=== PATIENT | male | born 1955 | race Caucasian/White ===

== ENCOUNTER 2016-08-27 08:45 | Observation (INO) | payer MEDICARE, MEDICAID ==
[2016-08-27] VITALS (7 sets, daily range): BP systolic 112–127; BP diastolic 55–72; PULSE 60–79; RESP 12–22; O2SAT 97–100
[~2016-08-27] VITALS: Ht 170.2 cm; Wt 97.1 kg
[~2016-08-27 08:45] MED LIST: ASPI-973 PO; ATOR80TA PO; CLOP75TA28 PO; DICY20TA10 PO; DOXA1TAB PO; FINA5TAB9 PO; FUR20 PO; GABA600T2 PO; INSU100C8 SUBQ; IRON150C19 PO; LOSA25TA21 PO; MECL-114 PO; MESA1.2T2 PO; METO25TA6 PO; PANT40TA3 PO; POTA10TA12 PO; RANI150C4 PO; TAMS0.4C29 PO; TRAZ-115 PO
--- NOTE | 2016-08-27 09:58 | ED.REPORT ---
HPI-General Illness Date of Service Aug 27, 2016 ED Provider: Albino Herron MD This is a 61 year old male with a history of history of ulcerative colitis, acute hypoxic, hypercapnic respiratory failure, obesity, DM, DVT, CAD, HTN, stroke, multiple TIA, CHF, and hyperlipidemia complaining of rash to left forearm that he noticed 3 days ago. Reports erythema and pain near the site. Associated symptoms include L upper extremity numbness that radiates to the fingers. Also reports L left lower extremity weakness and mild diffuse facial numbness which is slightly worse than baseline symptoms since previous stroke. Denies recent falls, injuries, fever, chills, cough, vomiting, nausea, change LOC, dizziness, or lightheadedness. Nursing Notes Stated Complaint: LEFT SIDE NUMB Chief Complaint: General Complaint Nursing Notes Reviewed: Yes Allergies: Coded Allergies: Macrolide Antibiotics (Verified Allergy, Severe, 09/07/15) azithromycin (Verified Allergy, Severe, 09/07/15) hydromorphone HCl (Verified Allergy, Severe, 09/07/15) lisinopril (Verified Allergy, Unknown, 09/07/15) methocarbamol (Verified Allergy, Unknown, 05/01/15) paroxetine (Verified Allergy, Unknown, 05/01/15) niacin (Verified Adverse Reaction, Mild, hot and itch, 04/15/15) Scheduled Aspirin (Aspirin) 81 Mg Tablet 81 MG PO DAILY Atorvastatin (Lipitor) 80 Mg Tablet 80 MG PO DAILY Clopidogrel (Clopidogrel) 75 Mg Tablet 75 MG PO DAILY Doxazosin (Cardura) 1 Mg Tablet 1 MG PO HS Finasteride (Finasteride) 5 Mg Tablet 5 MG PO DAILY Furosemide (Furosemide) 20 Mg Tab 20 MG PO DAILY Gabapentin (Gabapentin) 600 Mg Tablet 600 MG PO QID Insulin Aspart (NovoLOG U100 Insulin Vial) 100 U/Ml U 1 UNIT SUBQ per pump Iron Polysaccharide Complex (Ferric X-150) 150 Mg Iron Capsule 150 MG PO DAILY Losartan Potassium (Losartan Potassium) 25 Mg Tablet 25 MG PO DAILY Meclizine (Bonine) 25 Mg Tab.chew 25 MG PO TID Mesalamine (Lialda) 1.2 Gm Tablet.dr 1.2 GM PO BID Metoprolol Tartrate (Metoprolol Tartrate) 25 Mg Tablet 25 MG PO BID Pantoprazole DR (Pantoprazole DR) 40 Mg Tablet.dr 40 MG PO BID Potassium Chloride ER (Potassium Chloride ER) 10 Meq Tablet 10 MEQ PO DAILY TAKE WITH FOOD Ranitidine (Ranitidine) 150 Mg Capsule 150 MG PO BID Tamsulosin ER (Tamsulosin ER) 0.4 Mg Cap.er.24h 0.4 MG PO DAILY Scheduled PRN Dicyclomine (Dicyclomine) 20 Mg Tablet 20 MG PO QID PRN PRN For GI Cramps Trazodone (Trazodone) 50 Mg Tablet 25-50 MG PO HS PRN PRN Insomnia General Time Seen by MD: 09:48 Chief Complaint Other Hx Obtained From: Patient Arrived By: Walk-in Sudden in Onset?: Yes Onset Occurred: 3 days ago Symptom Duration: Since onset Severity: Current: Mild Pertinent Negative: Pt denies other symptoms Recent Healthcare: No recent doctor visit, No recent hospitalization Similar Sx Previous: No Past Medical History Patient History: Patient reports no known family medical history. Past Medical History Notes: PCP Dr. Márquez Pt in Admitted for fever diarrhea 04/05- with concern for recurrent C diff, but stool PCR panel negative Past Medical History h/o C. diff colitis ho Ulcerative colitis. history of acute hypoxic, hypercapnic respiratory failure requiring intubation and mechanical ventilation for eight days from September 23 through October 13, 2013. Obesity hypoventilation syndrome. History of pulmonary edema. History of GI bleeding associated with ulcerative colitis, gastritis, and esophagitis - pt w/a Dieulefoy lesion on endoscopy 09/23/[address] Ricketts (injected w/Epi, Hemoclip x2) Prior history of liver failure secondary to pravastatin, now resolved. Type 1 diabetes. History of DVT status post inferior vena cava filter by Dr. Edward on September 28, 2013 (patient no longer on Coumadin). Diastolic heart failure with last echocardiogram from September 2013 showing EF of 45%-55%. Status post pacemaker in 1994 for 3rd degree AV block. Insomnia. Depression. Hypertension. Hyperlipidemia. 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 Peripheral vascular disease. Obesity. ho Pneumonia Reports: Congestive heart failure, Coronary artery disease, Diabetes mellitus, GERD, Hyperlipidemia, Hypertension, Stroke, Transient ischemic attack Past Surgical History Right carotid stent Right lower extremity stent Inferior vena cava filter Reports: Carotid endarterectomy Reports: Pacemaker insertion Family History non-contributory Smoking History Former Smoker Social History Alcohol Use: Denies alcohol use Drug Use: Denies drug use Other Social History: Ambulatory Status Wheelchair Review of Systems Full Review of Systems Constitutional: Denies: Chills, Fever Respiratory: Denies: Shortness of breath GI: Denies: Abdominal pain, Nausea, Vomiting Musculoskeletal: Reports: Extremity pain Neurologic: Reports: Numbness, Weakness, Denies: Change LOC, Confusion, Headache Complete sys rev & neg: except as marked. Physical Exam Vital Signs Vital Signs Date Time Temp Pulse Resp B/P Pulse Ox O2 Delivery O2 Flow Rate FiO2 08/27/16 12:42 78 21 113/64 100 Room Air 08/27/16 10:02 71 19 116/55 98 Room Air 08/27/16 08:56 36.0 79 12 112/68 98 Room Air Initial VS: Reviewed Head / Eyes: Atraumatic, Normocephalic, PERRL ENT: Mucous membranes moist, Conjunctiva normal, No scleral icterus Neck: Supple, Non-tender, Full range of motion Respiratory: Breath sounds normal, Clear to auscultation, No respiratory distress Cardiovascular: Regular rate & rhythm, Heart sounds normal, Intact distal pulses Abdomen / GI: Soft, Non-tender, No guarding, No rebound, No distention Skin: Warm, Dry, No cyanosis Psychiatric: Mood/affect normal, Behavior normal, Normal thought content General/Constitutional: Awake, Alert Upper Extremities Upper Extremity / MS: No deformity, Neurologic intact, Vascular intact 1 cm subacute ulcer over L forearm without discharge or fluctuance. Neurologic: Oriented X3, Speech NL Decreased L sided facial sensation, 4/5 strength in L upper and lower extremities )( TPA Administration/Criteria Stroke Thrombolytic Therapy : TPA Administered Intravenously: No, not indicated NIH Stroke Scale Level of Consciousness: Alert and responsive (0) Ask Month & Age: Both questions right (0) Open/Close Eyes/Hand Religious Healer: Performs both tasks (0) Horizontal EO Movements: None (0) Visual Avelar: No visual loss (0) Facial Palsy: Normal symmetry (0) Right Arm Motor Drift (10s): No drift 10 sec (0) Left Arm Motor Drift (10s): Drift, not touch bed (1) (old) Right Leg Motor Drift (5s): No drift 5 sec (0) Left Leg Motor Drift (5s): No drift 5 sec (0) Limb Ataxia FNF/Heel-[place]: Ataxia in 2 limbs (2) (old) Sensation (Arms/Legs/Face): No sensory loss (0) Language Aphasia: No aphasia, normal (0) Dysarthria: No dysarthria, normal (0) Extinction/Inattention: No exctinct/inattent (0) NIHSS Score: 3 Time NIHSS Performed: 10:14 Date NIHSS Performed: Aug 27, 2016 Interpretation & Diagnostics BRAIN CT IMPRESSION: Mild mucosal thickening involving the ethmoid air cells. There is no acute or subacute stroke or hemorrhage identified and there is mild to moderate atherosclerotic change. Several small lucencies adjacent to the ventricles are again seen without change from prior comparison CT scans, indicating likelihood of several small lacunar infarctions in the past. Depending on the clinical status followup by MR scanning may be warranted. Dictated by: Jg Robert M.D. on 08/27/2016 at 11:21 Approved by: Jg Robert M.D. on 08/27/2016 at 11:21 Lab Results Interpretation Result Diagram: 08/27/16 1040 08/27/16 1040 Test 08/27/16 10:40 08/27/16 11:22 White Blood Count 7.1th/mm3 (3.8-10.1) Red Blood Count 4.77mil/mm3 (4.40-5.80) Hemoglobin 13.4g/dL (13.8-17.2) Hematocrit 40.9% (41.0-50.0) Mean Corpuscular Volume 85.7fL (81-100) Mean Corpuscular Hemoglobin 28.1pg (27.0-35.0) Mean Corpuscular Hemoglobin Concent 32.8% (32.0-37.0) Red Cell Distribution Width 13.5% (12.3-15.4) Platelet Count 279bil/L (150-400) Neutrophils (%) (Auto) 68.3% (40-74) Lymphocytes (%) (Auto) 16.6% (14-46) Monocytes (%) (Auto) 9.4% (4-12) Eosinophils (%) (Auto) 4.2% (0-5) Basophils (%) (Auto) 1.1% (0-3) Prothrombin Time 9.9sec (8.1-12.5) Prothromb Time International Ratio 0.93ratio Activated Partial Thromboplast Time 24.5sec (22.8-33.0) Sodium Level 138mEq/L (134-144) Potassium Level 4.4mEq/L (3.5-5.2) Chloride Level 100mEq/L (97-108) Carbon Dioxide Level 26mmol/L (18-29) Blood Urea Nitrogen 11mg/dL (6-24) Creatinine 0.76mg/dL (0.76-1.27) Estimat Glomerular Filtration Rate 112mL/min (>59) Glucose Level 268mg/dL (60-99) Calcium Level 9.2mg/dL (8.5-10.1) Total Bilirubin 1.3mg/dL (0.0-1.2) Aspartate Amino Transf (AST/SGOT) 13U/L (0-50) Alanine Aminotransferase (ALT/SGPT) 16U/L (0-44) Alkaline Phosphatase 102U/L (25-160) Troponin T < 0.010ug/L (0.0-0.011) Total Protein 7.1g/dL (6.4-8.4) Albumin 3.9g/dL (3.4-5.0) Urine Color Straw (YELLOW) Urine Appearance Hazy (CLEAR,HAZY) Urine pH 5.5 (5.0-8.0) Urine Specific [place] 1.015 (1.003-1.035) Urine Protein Negativemg/dL (NEG,TRACE) Urine Glucose (UA) 500mg/dL (NEGATIVE) Urine Ketones Negativemg/dL (NEGATIVE) Urine Occult Blood Negative (NEGATIVE) Urine Nitrite Negative (NEGATIVE) Urine Bilirubin Negative (NEGATIVE) Urine Urobilinogen Normalmg/dL (NORMAL) Urine Leukocyte Esterase Negative (NEGATIVE) Urine RBC 0-2/hpf (0-2) Urine WBC 0-5/hpf (0-5) Urine Epithelial Cells Occasional/hpf (NONE-MOD) Urine Crystals None seen (NONE SEEN) Urine Bacteria None/hpf (NONE-FEW) Urine Hyaline Casts None/lpf (NONE) Urine Granular Casts None seen (NONE SEEN) Urine Waxy Casts None seen (NONE SEEN) Urine Red Blood Cell Casts None seen (NONE SEEN) Urine White Blood Cell Casts None seen (NONE SEEN) Urine Mucus None seen (None Seen) Urine Trichomonas None seen (NONE SEEN) Urine Yeast None (NONE SEEN) Urinalysis Comment None Urine Culture Reflexed Not indicated Urine Opiates Screen Negative Urine Methadone Screen Negative Urine Barbiturates Screen Negative Urine Amphetamines Screen Negative Urine Benzodiazepines Screen Negative Urine Cocaine Metabolite Screen Negative Urine Cannabinoids Screen Negative ECG Interpretation ECG Interpretation: NSR at a rate of [address] changes Time: 10:44 Interpreted by: ED physician Re-Eval/Medical Decision Med Decision/Clinical Course 61-year-old male history of type I diabetes with insulin pump, history of CVA, DVT, ulcerative colitis presenting with worsening of his left-sided weakness and numbness 3 days. Patient with CVA years ago with residual deficits left-sided weakness left-sided numbness upper and lower extremity. Reports this worsens 3 days ago. Also complaining of left face numbness which is new. CT head no hemorrhage or acute pathology evidence of old lacunar infarcts. His NIH stroke scale is 3 with deficits as above which are subjectively worsened relative to old. Labs unremarkable. Discussed with neurologist Dr. Evans recommends admission for stroke workup. He cannot have an MRI due to his pacemaker. Recommended CT angiogram brain and neck and further stroke workup. Patient is on Plavix which is recommended continue and will give dose of aspirin. Time of Eval: 12:10 Re-Evaluation/Progress Note: Pt re-checked, discussed plan for admission. Pt understands and agrees with plan, all questions addressed. Consultation #1: Referral / Consult Name: Wolfgang Arango MD Consulted With: Neurology Call Returned at: 12:19 [place]: Agrees with eval, Agrees with plan Consultation #2: Referral / Consult Name: Lamont Ochoa Consulted With: Hospitalist Call Returned at: 12:43 [place]: Agrees with eval, Agrees with plan, Accepts admit Counseled Regarding: Diagnosis, Lab results, Need for follow-up, Need for admission Discharge & Departure Primary Impression: CVA (cerebral vascular accident) CVA mechanism: unspecified Qualified Code: I63.9 - Cerebral infarction, unspecified Disposition: ADMITTED TO HOSPITAL Discharge Condition All VS Reviewed: Yes Condition: Stable Referrals: Kareem Márquez MD (PCP) Scribe Attestation Portions of this note were transcribed by Nitesh Gallegos. IDr. Herron personally performed the history, physical exam and medical decision-making; I reviewed and confirmed the accuracy of the information in the transcribed note. Signed by: Nitesh Gallegos. 08/27/2015, 1030. Albino Herron MD Aug 27, 2016 09:58 NITESH GALLEGOS Aug 27, 2016 10:03
[2016-08-27 11:02] LABS: BASOPHILS % (AUTO) 1.1 % (0-3); EOSINOPHILS % (AUTO) 4.2 % (0-5); MONOCYTES % (AUTO) 9.4 % (4-12); Mean Corpuscular Hemoglobin 28.1 pg (27.0-35.0); Mean Corpuscular Volume 85.7 fL (81-100); NEUTROPHILS % (AUTO) 68.3 % (40-74); Platelet Count 279 bil/L (150-400)
--- NOTE | 2016-08-27 11:23 | DRSVH ---
PROCEDURE: CT BRAIN WITHOUT CONTRAST ([id number]) INDICATIONS: Stroke TECHNIQUE: Noncontrast 4.5 mm thick angled axial sections acquired from the foramen magnum to the vertex, with c oronal reformats. COMPARISON: [facility], CT, CT BRAIN WO CON, 03/27/2016, 14:20. FINDINGS: Image quality: Excellent. CSF spaces: Basal cisterns are patent. No extra-axial fluid collections. Ventricles are normal in size and shape. Brain: No midline shift. No intracranial masses or hemorrhage. Rich-white matter interface is norm al. Skull and face: Calvarium and visualized facial bones are intact, without suspicious lesions. Sinuses: Visualized sinuses and mastoids are clear except for mild mucosal thickening involving the ethmoid air cells. IMPRESSION: Mild mucosal thickening involving the ethmoid air cells. There is no acute or subacute s troke or hemorrhage identified and there is mild to moderate atherosclerotic change. Several small l ucencies adjacent to the ventricles are again seen without change from prior comparison CT scans, ind icating likelihood of several small lacunar infarctions in the past. Depending on the clinical status followup by MR scanning may be warranted. Dictated by: Jg Robert M.D. on 08/27/2016 at 11:21 Approved by: Jg Robert M.D. on 08/27/2016 at 11:21
[2016-08-27 11:25] LABS: INR 0.93 ratio
--- NOTE | 2016-08-27 11:43 | NUR ---
Evaluation completed. Please go to "Notes" then click on "Assessments and Notes" (bottom left corner of screen). Then select appropriate discipline tab on top of screen.
[2016-08-27 11:46] LABS: TROPONIN T < 0.010 ug/L (0.0-0.011)
[2016-08-27 12:10] LABS: APPEARANCE,URINE HAZY (CLEAR,HAZY); COLOR,URINE STRAW (YELLOW); OCCULT BLOOD,URINE NEGATIVE (NEGATIVE); PH,URINE 5.5 (5.0-8.0); UROBILINOGEN,URINE NORMAL (NORMAL)
[2016-08-27] MEDS ORDERED: Ondansetron 2 mg/mL 2 mL Inj IVPUSH PRN (13:00)
[2016-08-27] MEDS ORDERED: Alum-Mag Hydrox-Simeth 30 mL Suspension PO PRN ×2 (13:00→17:55)
[2016-08-27] MEDS ORDERED: POTA20TA16 PO (16:17)
[2016-08-27] MEDS ORDERED: INSLIS SQ (16:17)
[2016-08-27] MEDS ORDERED: DOXA2TAB PO (16:17)
[2016-08-27] MEDS ORDERED: OXYB15TA PO (16:17)
[2016-08-27] MEDS ORDERED: METO25TA99 PO (16:17)
--- NOTE | 2016-08-27 16:58 | NUR ---
[place] to [facility] Received report from Cintia ARCE at 1350 in ER. Pt A+Ox3, classroom coordinator equal, tongue midline, no facial droop. Pt reports still having some "numbness in left hand but getting better and I always have numbness in both feet." Denies pain. Scab to left forearm near elbow that pt states has been "unable to heal because the scab keeps catching on my jacket when I get dressed". Multiple scabs/abrasions noted also to bilateral lower legs with redness and dryness. Report called to Beena Gabriel RN on [facility], pt transferred [place] [facility] room 3011 from ER at 1646 in stable condition with all belongings via stretcher with ELECTRONICS RESEARCH ENGINEER, pt's electric scooter also went to floor with pt. Pt transferred out of ER at 1646.
--- NOTE | 2016-08-27 17:54 | NUR ---
ADMIT Admitted a 61/M into room 3011 at 1600 this afternoon following report from Aracely López RN. Pt A&Ox4, pleasant, denies any pain/discomfort. Pt able to transfer from stretcher to bed with SBA. He has his own personal scooter in room. R AC IV flushing well. Pt has mult skin issues - see patient flow sheet for details. Pt L hand slightly less than R in terms of drum operator, equal smile, tongue at midline. Pt able to hold both hands and legs out extended for 10+ seconds with no drift. TELE placed on pt, SR 77 per monitor and storage bin tender. Pt arrived with own insulin pump, req to utilize while in hospital. agreed, however per pharmacy unable to fill per policy. Pt agreed to switch to sliding scale while in hospital, cookpaged pt's decision. Current diet dysph mechanical, soft with extra gravy and thin liquids. Pt introduced to staff upon arrival and shown how to use call light and bed controls. Bed currently in lowest, locked position and call light in reach.
[2016-08-27] MEDS ORDERED: Polyethylene Glycol (PEG) 17 Gm Powder PO PRN (17:55)
[2016-08-27] MEDS ORDERED: Labetalol 5 mg/mL 4 mL Inj IVPUSH PRN (17:55)
[2016-08-27] MEDS ORDERED: Ondansetron 2 mg/mL 2 mL Inj IV PRN (17:55)
--- NOTE | 2016-08-27 18:20 | PCM.HPMED ---
Subjective Date of Service Aug 27, 2016 Primary Provider: Admitting Physician: Lamont Ochoa Primary Care Physician: Kareem Márquez MD Attending Physician: Lamont Ochoa Chief Complaint: left hand and arm numbness/tingling History of Present Illness: 59-year-old male with multiple medical issues as noted below and notable for DM , HTN, CVA and TIAs in the past says that he went to urgent care today earlier today because of a small ulceration that he has on his left arm (after a scratch by his cat) that seems to be slow in healing. At urgent care on ROS he told them that he has been having a ongoing numbness and tingling of his left arm and leg since Thursday (past 3 days now). He did not seek any medical attention earlier for his neurologic symptoms earlier because he says he has had these symptoms before which usually self resolve and he thought he might be having another TIA or paraesthesia due to his diabetes. At any rate, he was directed to come to the ED. In the ED Dr. Arango (neurologist) was apparently contact who recommended patient be admitted for further observation and consideration of CTA of his brain. No MRI given patient having a pacemaker in place. He tells me that his left leg numbness and tingling seem to have completely resolved while in the ED and he feels that the numbness of his left upper extremity is also improving although not completely resolved yet. He otherwise denies any other issues or complaints. He denies any focal weakness, acute change in his vision or speech. He does not have any dizziness. In the ED he received a dose of ASA 325mg x 1. Review of Systems: Allergies Coded Allergies: Macrolide Antibiotics (Verified Allergy, Severe, 08/27/16) azithromycin (Verified Allergy, Severe, 08/27/16) hydromorphone HCl (Verified Allergy, Severe, 08/27/16) lisinopril (Verified Allergy, Unknown, 08/27/16) methocarbamol (Verified Allergy, Unknown, 08/27/16) paroxetine (Verified Allergy, Unknown, 08/27/16) niacin (Verified Adverse Reaction, Mild, hot and itch, 08/27/16) Home Medications Tamsulosin ER 0.4 Mg Cap.Er.24h 0.4 Mg PO DAILY Clopidogrel 75 Mg Tablet 75 Mg PO DAILY Atorvastatin 80 Mg Tablet (Lipitor) 80 Mg PO DAILY Doxazosin Mesylate 2 Mg Tablet 1 Mg PO HS Losartan Potassium 25 Mg Tablet 25 Mg PO DAILY Metoprolol Succinate ER 25 Mg Tab.Er.24h 25 Mg PO BID Aspirin 81 Mg Tablet 81 Mg PO DAILY 30 Days Gabapentin 600 Mg Tablet 600 Mg PO QID Furosemide 20 Mg Tab 20 Mg PO DAILY 30 Days Potassium Chloride 20 Meq Tab.Er.Prt 20 Meq PO DAILY Mesalamine 1.2 Gm Tablet.Dr (Lialda) 1.2 Gm PO QID Pantoprazole DR 40 Mg Tablet.Dr 40 Mg PO BID Ranitidine 150 Mg Capsule 150 Mg PO BID Insulin Human Lispro 100 Unit/Ml Unit (HumaLOG U100 Insulin Vial) Unknown Dose SQ ACHS insulin dosing based on blood sugar, given via insulin pump Oxybutynin Chloride ER 15 Mg Tab.Er.24 15 Mg PO DAILY Finasteride 5 Mg Tablet 5 Mg PO DAILY 30 Days Exam Vital Signs & I/O Vital Sign- Last 8 Hours Date Time Temp Pulse Resp B/P Pulse Ox O2 Delivery O2 Flow Rate FiO2 08/27/16 17:07 36.7 77 22 120/66 97 Room Air 08/27/16 16:48 60 08/27/16 12:42 78 21 113/64 100 Room Air Lab & Micro Results Laboratory Tests Test 08/27/16 10:40 08/27/16 11:22 White Blood Count 7.1th/mm3 (3.8-10.1) Red Blood Count 4.77mil/mm3 (4.40-5.80) Hemoglobin 13.4g/dL (13.8-17.2) Hematocrit 40.9% (41.0-50.0) Mean Corpuscular Volume 85.7fL (81-100) Mean Corpuscular Hemoglobin 28.1pg (27.0-35.0) Mean Corpuscular Hemoglobin Concent 32.8% (32.0-37.0) Red Cell Distribution Width 13.5% (12.3-15.4) Platelet Count 279bil/L (150-400) Neutrophils (%) (Auto) 68.3% (40-74) Lymphocytes (%) (Auto) 16.6% (14-46) Monocytes (%) (Auto) 9.4% (4-12) Eosinophils (%) (Auto) 4.2% (0-5) Basophils (%) (Auto) 1.1% (0-3) Prothrombin Time 9.9sec (8.1-12.5) Prothromb Time International Ratio 0.93ratio Activated Partial Thromboplast Time 24.5sec (22.8-33.0) Sodium Level 138mEq/L (134-144) Potassium Level 4.4mEq/L (3.5-5.2) Chloride Level 100mEq/L (97-108) Carbon Dioxide Level 26mmol/L (18-29) Blood Urea Nitrogen 11mg/dL (6-24) Creatinine 0.76mg/dL (0.76-1.27) Estimat Glomerular Filtration Rate 112mL/min (>59) Glucose Level 268mg/dL (60-99) Calcium Level 9.2mg/dL (8.5-10.1) Total Bilirubin 1.3mg/dL (0.0-1.2) Aspartate Amino Transf (AST/SGOT) 13U/L (0-50) Alanine Aminotransferase (ALT/SGPT) 16U/L (0-44) Alkaline Phosphatase 102U/L (25-160) Troponin T < 0.010ug/L (0.0-0.011) Total Protein 7.1g/dL (6.4-8.4) Albumin 3.9g/dL (3.4-5.0) Urine Color Straw (YELLOW) Urine Appearance Hazy (CLEAR,HAZY) Urine pH 5.5 (5.0-8.0) Urine Specific [place] 1.015 (1.003-1.035) Urine Protein Negativemg/dL (NEG,TRACE) Urine Glucose (UA) 500mg/dL (NEGATIVE) Urine Ketones Negativemg/dL (NEGATIVE) Urine Occult Blood Negative (NEGATIVE) Urine Nitrite Negative (NEGATIVE) Urine Bilirubin Negative (NEGATIVE) Urine Urobilinogen Normalmg/dL (NORMAL) Urine Leukocyte Esterase Negative (NEGATIVE) Urine RBC 0-2/hpf (0-2) Urine WBC 0-5/hpf (0-5) Urine Epithelial Cells Occasional/hpf (NONE-MOD) Urine Crystals None seen (NONE SEEN) Urine Bacteria None/hpf (NONE-FEW) Urine Hyaline Casts None/lpf (NONE) Urine Granular Casts None seen (NONE SEEN) Urine Waxy Casts None seen (NONE SEEN) Urine Red Blood Cell Casts None seen (NONE SEEN) Urine White Blood Cell Casts None seen (NONE SEEN) Urine Mucus None seen (None Seen) Urine Trichomonas None seen (NONE SEEN) Urine Yeast None (NONE SEEN) Urinalysis Comment None Urine Culture Reflexed Not indicated Urine Opiates Screen Negative Urine Methadone Screen Negative Urine Barbiturates Screen Negative Urine Amphetamines Screen Negative Urine Benzodiazepines Screen Negative Urine Cocaine Metabolite Screen Negative Urine Cannabinoids Screen Negative Result Diagram: 08/27/16 1040 08/27/16 1040 Review of Systems: Constitutional: Negative, except as otherwise mentioned in the history above. Ophthalmologic: Negative, except as otherwise mentioned in the history above. Cardiovascular: Negative, except as otherwise mentioned in the history above. Respiratory: Negative, except as otherwise mentioned in the history above. Gastrointestinal: Negative, except as otherwise mentioned in the history above. Genitourinary: Negative, except as otherwise mentioned in the history above. Musculoskeletal: Negative, except as otherwise mentioned in the history above. Neurological: Negative, except as otherwise mentioned in the history above. Psychiatric: Negative, except as otherwise mentioned in the history above. Hematologic/Lymphatic: Negative, except as otherwise mentioned in the history above. Allergic/Immunologic: Negative, except as otherwise mentioned in the history above. PMH 1. post pacemaker placement 2. Distant history of C. diff colitis 3. Ulcerative colitis. 4. history of acute hypoxic, hypercapnic respiratory failure requiring intubation and mechanical ventilation for eight days from September 23 through October 13, 2013. 5. Obesity hypoventilation syndrome. 6. History of pulmonary edema. 7. History of GI bleeding associated with ulcerative colitis, gastritis, and esophagitis. 8. Prior history of liver failure secondary to pravastatin, now resolved. 9. Type 1 diabetes. 10. History of DVT status post inferior vena cava filter by Dr. Edward on September 28, 2013 (patient no longer on Coumadin). 11. Diastolic heart failure with last echocardiogram from September 2013 showing EF of 45%-55%. 12. Status post pacemaker in 1994 for 3rd degree AV block. 13. Insomnia. 14. Depression. 15. Hypertension. 16. Hyperlipidemia. 17. History of CVA with bilateral capsule ganglia lacunar infarction, status post TIA/CVA and intermittent left sided numbness and tingling 18. Status post right carotid stenting on December 19, 2010. 19. Peripheral vascular disease. 20. Used to smoke but quit several years ago after his NH. He denies any history of alcohol or drug abuse. Family History Unknown secondary to patient being adopted. Social History Hx Alcohol Use: No Hx Substance Use: No Hx Tobacco Use: No Smoking Status: Former Smoker Exam Vital Signs Vital Sign - Last Date Time Temp Pulse Resp B/P Pulse Ox O2 Delivery O2 Flow Rate FiO2 08/27/16 17:07 36.7 77 22 120/66 97 Room Air General: Alert, Oriented X3, Cooperative, No Acute Distress Head: Normal Eyes: PERRLA, EOMI, Scleral Anicteric Nose: Mucous Membr Moist/[place] Mouth: Mucous Membr Moist/[place] Neck: Supple Chest & Lungs: Chest Wall Normal, Clear to auscultation & percussion Cardiovascular: Regular Rate/Rhythm Pulses: NL carotid, radial, femoral, DP, PT Abdomen: Non-tender, Non-distended, Normoactive bowel tones, Soft Extremities: Other (trace bilat LE edema with chronic skin changes of LE bilat) Skin: Wounds/Lacerations (small wound (about 1cm) on left arm without significant surrounding erythema or discharge) Neurological: Grossly Neurologically Intact, Cranial Nerves 2-12 Intact, Normal Speech, Strength Normal 4/4 ext (bilat) Additional Information: no significant lymphadenopathy. Mood and affect appropriate Lab and Diagnostics Result Diagram: 08/27/16 1040 08/27/16 1040 X-Rays, CTs and MRIs Date of Service: 08/27/16 1018 PROCEDURE: CT BRAIN WITHOUT CONTRAST ([id number]) IMPRESSION: Mild mucosal thickening involving the ethmoid air cells. There is no acute or subacute stroke or hemorrhage identified and there is mild to moderate atherosclerotic change. Several small lucencies adjacent to the ventricles are again seen without change from prior comparison CT scans, indicating likelihood of several small lacunar infarctions in the past. Depending on the clinical status followup by MR scanning may be warranted. Dictated by: Jg Robert M.D. on 08/27/2016 at 11:21 Approved by: Jg Robert M.D. on 08/27/2016 at 11:21 Assessment & Plan 59-year-old male with multiple medical issuesand notable for DM, HTN, CVA and TIAs, CAD, post pacemaker in the past presents with report of about 3 days of LUE and LLE numbness and tingling with left LE symptoms already resolved prior to arriving to floor. # Acute and recurrent left sided numbness and paraesthesia. poa. ongoing but improving - unclear to me at this point if this is a new onset CVA/TIA vs acute exacerbation of prior symptoms vs diabetic neuropathy. - will observe on Tele - check CTA brain. unable to obtain MRI 2ndry to pacemaker - c/w home dose ASA + Plavix + Statin - f/u with neurology consult and recs - PT/OT - He has had multiple echocardiograms for workup of TIA/CVA (last one in March 2016) which I will not order at this time unless recommended by neurology consult. # small wound/ulceration on left arm from recent cat scratch. - does not seem infected - wound care and dressing # History of ulcerative colitis. stable - c/w home meds and supportive care # Type 1 diabetes. chronic. - c/w home dose Insulin - cover w/ ISS - f/u HgA1C # Diastolic heart failure, chronic. stable - c/w home dose Lasix # Hypertension. chronic. stable - c/w home BP meds # Hyperlipidemia. - c/w home dose statin as noted above # Peripheral vascular disease. - ASA, Plavix, Statin, and BP meds as noted Expected length of hospital stay is less than 2 midnights and likely home tomorrow if workup unrevealing and symptoms improve GI Prophylaxis: Proton Pump Inhibitor VTE Prophylaxis: Sub-Q Heparin (Unfractionated) Resuscitation Status: DNR/DNI:Do Not Resuscitate/Intubate (discussed and verified with the patient.) Time spent 60 min Lamont Ochoa Aug 27, 2016 18:20
[2016-08-27] MEDS: Pantoprazole 40 mg ER24 Tablet PO SCH (21:27)
[2016-08-27] MEDS: MeTOProlol XL 25 mg ER24 Tablet PO SCH (21:28)
[2016-08-27] MEDS: Insulin Human REGular 300 Unit/3 mL Inj SUBQ SCH (21:31)
--- NOTE | 2016-08-27 21:31 | NUR ---
Insulin pump refilled by friend, now self administering insulin.
[2016-08-28] VITALS (8 sets, daily range): BP systolic 110–132; BP diastolic 61–74; PULSE 64–75; RESP 20–21; O2SAT 95–99
[2016-08-28] MEDS: Heparin 5,000 Unit/mL Inj SUBQ SCH ×3 (00:06→17:07)
[2016-08-28] MEDS: Pantoprazole 40 mg ER24 Tablet PO SCH ×2 (06:02→20:44)
--- NOTE | 2016-08-28 08:49 | CONS ---
[address] [address] CONSULTATION REPORT PATIENT: GIAN GOETZ : 1955 MR#: [id number] ADMIT: 08/27/2016 JOB ID: [id number] DATE OF SERVICE: 08/27/2016 REQUESTING PROVIDER: Albino Herron MD. CHIEF COMPLAINT: Worsening left upper and lower extremity weakness and numbness. HISTORY OF PRESENT ILLNESS: The patient is a pleasant 61-year-old, right-handed man with multiple medical problems, including a longstanding history of diabetes mellitus type 1 and a history of a stroke in the past affecting the left side of his body. He reports that he had recovered greatly from the stroke up until recently when he noted sudden onset on Thursday of increasing weakness on the left side of his body, as well as increasing numbness. He reports a history of multiple transient ischemic attacks and felt that this was another event and did not seek emergency attention. He did have a CT of his head which demonstrated mild mucosal thickening involving the ethmoid air cells. There was no acute or subacute stroke or hemorrhage identified. There were mild to moderate atherosclerotic changes. There were several small lucencies adjacent to the ventricles that are seen without change from prior comparative CT scans indicating likely the several small lacunar infarctions in the past. He has the pacemaker and therefore, MRI is excluded as a possibility. He reports that he had noted some improvement in his symptoms over time since Thursday. PHYSICAL EXAMINATION: Temperature 36.6, pulse of 59, respiratory rate of 20, blood pressure 117/65, pulse oximetry 98%. There is left upper and left lower extremity weakness, 5-/5. IMPRESSION: Suspect that he did have another stroke. My recommendation is to do a CT angiogram of his head and neck. Renal function looks good. GFR is 112, BUN 11 and creatinine 0.76. He reports that he takes aspirin 81 mg and Plavix daily. I suspect that this stroke is related to his diabetes. I recommend that he continue to optimize control of his stroke risk factors, principally diabetes. If a hyperlipidemia panel has not been performed recently, I do recommended it. I recommend optimizing control of his stroke risk factors other than diabetes to include hyperlipidemia. Thank you again, Dr. Albino Herron, for allowing me to participate in the care of your patient. Please feel free to contact me with any questions or concerns.
[2016-08-28] MEDS: Insulin Human REGular 300 Unit/3 mL Inj SUBQ SCH ×4 (08:56→22:00)
[2016-08-28 09:05] LABS: BASOPHILS % (AUTO) 1.3 % (0-3); EOSINOPHILS % (AUTO) 6.5 % (0-5); MONOCYTES % (AUTO) 11.8 % (4-12); Mean Corpuscular Hemoglobin 27.7 pg (27.0-35.0); Mean Corpuscular Volume 86.2 fL (81-100); NEUTROPHILS % (AUTO) 51.5 % (40-74); Platelet Count 279 bil/L (150-400)
[2016-08-28] MEDS: MeTOProlol XL 25 mg ER24 Tablet PO SCH ×2 (09:05→20:44)
[2016-08-28] MEDS: Potassium Chloride 20 mEq SR Tablet PO SCH (09:06)
[2016-08-28] MEDS: Tolterodine ER 4 mg ER24 Capsule PO SCH (09:06)
[2016-08-28 09:36] LABS: Magnesium 1.9 mg/dL (1.6-2.6)
--- NOTE | 2016-08-28 10:59 | NUR ---
Social Work: Initial Assessment Data: Pt is a 61 y/o male admitted for CVA. Pt's PCP is Dr. Márquez. Pt's insurance is Medicare with [facility] Medicaid. Pt readmit score is 5. EMR reviewed, pt discussed in rounds. PT states that pt is currently at baseline and can d/c home from their perspective. MARINE STEWARD me with pt at bedside, role explained. Pt states that he lives alone in a single story home that is wheel chair accessible where he uses his electric scooter at baseline. Pt states he has [employer] that assist him with bathing and chores on from 12:45-3:30pm. Pt reports no history of HH, he spent time at [facility] previously, no LTC or VA benefits, and is not a caregiver for another. Pt does not drive and uses the bus system for transportation, this is also his plan for transport at d/c. No d/c planning needs anticipated at this time. MARINE STEWARD will continue to follow if needs arise. Assessment: Pt with some caregiving at baseline, electric scooter at baseline. Plan: Pt will d/c home via bus system when medically stable. No d/c planning needs anticipated at this time. MARINE STEWARD will continue to follow if needs arise. NAFISA Cyr Addendum: 08/28/16 at 1103 by LEONOR VELÁSQUEZ SS Amended: Links added.
--- NOTE | 2016-08-28 16:25 | NUR ---
Wound Care wound evaluation received, pleasant 61 yo male admitted for possible new neurological deficits. Consulted for left arm wound which is superficial and measuring 1.5 cm in diameter, appears uninfected. Recommended application of hydrogel and adhesive foam dressing. No follow up needed at this time.
--- NOTE | 2016-08-28 19:21 | DRSVH ---
PROCEDURE: CT ANGIO HEAD AND NECK (P) INDICATIONS: Stroke/TIA TECHNIQUE: Pre-contrast 4.5 mm thick sections acquired from the foramen magnum to the vertex. After the adminis tration of intravenous contrast, 1 mm thick sections acquired from the aortic arch through the [place]. Post-contrast 4.5 mm thick sections then re-acquired from the foramen magnum to the vert ex. 3-dimensional bvgbjbh-lshtkcjob-braqtyfjtn (MIP) and/or volume rendering reformats were acquired of the central intracranial vasculature and neck separately. For radiation dose reduction, the foll owing was used: automated exposure control, adjustment of mA and/or kV according to patient size. COMPARISON: [facility], CT, CT BRAIN WO CON, 08/27/2016, 11:07. FINDINGS: Image quality: Excellent. BRAIN: CSF spaces: Ventricles are normal in size and shape. Basal cisterns are patent. No extra-axial flu id collections. Brain: No midline shift. No intracranial bleeds or masses. Rich-white matter interface appears int act. Old, small, lacunar infarcts noted in the basal ganglia bilaterally. Skull and face: Calvarium and facial bones appear intact, without suspicious lesions. Orbits appear normal. Sinuses: Scattered mucosal thickening noted in the ethmoid air cells. The mastoids are clear. HEAD CT ANGIOGRAPHY: Anterior circulation: The right internal carotid artery is occluded. There is reconstitution of yaron w in the supraclinoid segment of the right internal carotid artery. Atherosclerotic calcifications n oted in the [place], cavernous and supraclinoid segments of the left internal carotid artery. Atheros clerotic disease causes high grade stenosis of the cavernous and supraclinoid segments of the left in ternal carotid artery. The flow within the paired anterior cerebral arteries is normal and symmetric . The flow within the middle cerebral arteries is normal and symmetric. The anterior communicating artery is seen. No aneurysms are seen. Posterior circulation: Visualized portions of the vertebral arteries demonstrate normal contrast opa cification and join to form a normal appearing basilar artery. Calcified atherosclerotic plaque noted in the V4 segments of the vertebral arteries bilaterally which does not cause measurable stenosis. Flow within the posterior cerebral arteries is normal and symmetric. No aneurysms are seen. Normal contrast enhancement of the dural sinuses noted. NECK CT ANGIOGRAPHY: Carotid system: The great vessels demonstrate a conventional anatomy as they arise from the aortic a rch. The origins of the common carotid arteries appear patent. The common carotid arteries demonstr ate normal caliber and courses. The right internal carotid artery is occluded immediately distal to t he origin the vessel. The left internal carotid artery is fully patent at its origin. Posterior circulation: The origins of the vertebral arteries both appear widely patent. The more rodriguez perior extracranial portions of both vertebral arteries also demonstrate normal courses and calibers. They join to form a normal appearing basilar artery. Soft tissues: Visualized neck soft tissues demonstrate no suspicious abnormalities. Left chest wall cardiac pacer is noted. Bones: No suspicious bony lesions. Visualized cervical spine appears normally aligned. IMPRESSION: 1. Right internal carotid artery is a occluded just distal to its origin. Endovascular device is no marlene in the [place] segment of the right internal carotid remains in place for prior embolization. Ple ase correlate with clinical history. 2. High grade atherosclerotic stenosis involving the cavernous and supraclinoid segments of the left internal carotid artery. 3. No hemodynamically significant stenosis involving the posterior circulation. Dictated by: Jeannine Kohler MD, PhD on 08/28/2016 at 19:19 Approved by: Jeannine Kohler MD, PhD on 08/28/2016 at 19:19
--- NOTE | 2016-08-28 21:01 | PCM.PNMED ---
Subjective Date of Service Aug 28, 2016 Subjective Patient feels that his neurological status is back to baseline. He no longer has weakness or paresthesias of the left upper extremity. Exam Vital Signs Vital Sign - Last Date Time Temp Pulse Resp B/P Pulse Ox O2 Delivery O2 Flow Rate FiO2 08/28/16 16:46 36.9 75 21 132/74 95 Room Air Intake and Output 08/27/16 08/27/16 08/28/16 Cumulative From/Thru 15:00 23:00 07:00 08/27/16 08:56 - 08/27/16 21:32 Intake Total 237 ml 237 ml Output Total 425 ml 275 ml 700 ml Balance -425 ml -38 ml -463 ml Intake Oral 237 ml 237 ml Output Urine Total 425 ml 275 ml 700 ml Exam General: Patient is in no apparent distress. He has been getting in and out his scooter. HEENT: Head is atraumatic normocephalic. Eyes: Pupils are equally round and reactive to light and accommodation. Extraocular muscles are intact. Sclera are white anicteric. Subconjunctival mucosa is pink. Ears and nose are unremarkable. Oropharynx: There is no mucosal lesions, there is no thrush, there is no pharyngitis. Neck: Is supple, there are no nodes, or masses, or tenderness. Chest: Is clear to auscultation and percussion. There are no rales, rhonchi, wheezes or rubs. Heart: Rate, rhythm, is regular. There is no murmur, rub or gallop. Abdomen: Good bowel sounds are present. Abdomen is soft, nontender, no organomegaly or masses were appreciated. Extremities: Are symmetrical and well perfused. There is no edema, there is no cellulitis, no rash. Neurologic: There are no gross focal neurological deficits. Patient was able to do the finger to nose test however with poor precision. He was able to perform the qfqo-si-yloy test without difficulty. He has very poor balance all standing however. Cranial nerves II through XII are intact. There are no other sensory or motor deficits. Patient does have extremely poor peripheral vision. He states this is from numerous laser surgeries on his retina. Psychiatric: Patients mood is calm and shows no sign of agitation. Genital: Deferred Rectal: Deferred Lab and Diagnostics Result Diagram: 08/28/1652 08/28/1652 X-Rays, CTs and MRIs Date of Service: 08/27/16 1018 PROCEDURE: CT BRAIN WITHOUT CONTRAST ([id number]) IMPRESSION: Mild mucosal thickening involving the ethmoid air cells. There is no acute or subacute stroke or hemorrhage identified and there is mild to moderate atherosclerotic change. Several small lucencies adjacent to the ventricles are again seen without change from prior comparison CT scans, indicating likelihood of several small lacunar infarctions in the past. Depending on the clinical status followup by MR scanning may be warranted. Dictated by: Jg Robert M.D. on 08/27/2016 at 11:21 Approved by: Jg Robert M.D. on 08/27/2016 at 11:21 PROCEDURE: CT ANGIO HEAD AND NECK (P) INDICATIONS: Stroke/TIA TECHNIQUE: Pre-contrast 4.5 mm thick sections acquired from the foramen magnum to the vertex. After the administration of intravenous contrast, 1 mm thick sections acquired from the aortic arch through the [place] of [place]. Post-contrast 4.5 mm thick sections then re-acquired from the foramen magnum to the vertex. 3- dimensional gtauvqp-lmrivafco-obounaavdf (MIP) and/or volume rendering reformats were acquired of the central intracranial vasculature and neck separately. For radiation dose reduction, the following was used: automated exposure control, adjustment of mA and/or kV according to patient size. COMPARISON: [facility], CT, CT BRAIN WO CON, 08/27/2016, 11:07. FINDINGS: Image quality: Excellent. BRAIN: CSF spaces: Ventricles are normal in size and shape. Basal cisterns are patent. No extra-axial fluid collections. Brain: No midline shift. No intracranial bleeds or masses. Rich-white matter interface appears intact. Old, small, lacunar infarcts noted in the basal ganglia bilaterally. Skull and face: Calvarium and facial bones appear intact, without suspicious lesions. Orbits appear normal. Sinuses: Scattered mucosal thickening noted in the ethmoid air cells. The mastoids are clear. HEAD CT ANGIOGRAPHY: Anterior circulation: The right internal carotid artery is occluded. There is reconstitution of flow in the supraclinoid segment of the right internal carotid artery. Atherosclerotic calcifications noted in the [place], cavernous and supraclinoid segments of the left internal carotid artery. Atherosclerotic disease causes high grade stenosis of the cavernous and supraclinoid segments of the left internal carotid artery. The flow within the paired anterior cerebral arteries is normal and symmetric. The flow within the middle cerebral arteries is normal and symmetric. The anterior communicating artery is seen. No aneurysms are seen. Posterior circulation: Visualized portions of the vertebral arteries demonstrate normal contrast opacification and join to form a normal appearing basilar artery. Calcified atherosclerotic plaque noted in the V4 segments of the vertebral arteries bilaterally which does not cause measurable stenosis. Flow within the posterior cerebral arteries is normal and symmetric. No aneurysms are seen. Normal contrast enhancement of the dural sinuses noted. NECK CT ANGIOGRAPHY: Carotid system: The great vessels demonstrate a conventional anatomy as they arise from the aortic arch. The origins of the common carotid arteries appear patent. The common carotid arteries demonstrate normal caliber and courses. The right internal carotid artery is occluded immediately distal to the origin the vessel. The left internal carotid artery is fully patent at its origin. Posterior circulation: The origins of the vertebral arteries both appear widely patent. The more superior extracranial portions of both vertebral arteries also demonstrate normal courses and calibers. They join to form a normal appearing basilar artery. Soft tissues: Visualized neck soft tissues demonstrate no suspicious abnormalities. Left chest wall cardiac pacer is noted. Bones: No suspicious bony lesions. Visualized cervical spine appears normally aligned. IMPRESSION: 1. Right internal carotid artery is a occluded just distal to its origin. Endovascular device is noted in the [place] segment of the right internal carotid remains in place for prior embolization. Please correlate with clinical history. 2. High grade atherosclerotic stenosis involving the cavernous and supraclinoid segments of the left internal carotid artery. 3. No hemodynamically significant stenosis involving the posterior circulation. Dictated by: Jeannine Kohler MD, PhD on 08/28/2016 at 19:19 Approved by: Jeannine Kohler MD, PhD on 08/28/2016 at 19:19 Cardiac Echo Impressions Echocardiogram Report Name: GIAN GOETZ WStudy Date : 03/28/2016 Height: 67 in Hospital Exam Location: [facility] Weight: 214 lb Gender: Male BSA: 2.1 m2 : 1955 Age: 60 yrs BP: 110/70 mmHg Reason For Study: CVA Ordering Physician: HOSPITALIST SVHPerformed By: Yogi Plummer Referring Physician: MERLINE LOPEZ Interpretation Summary The study quality was technically difficult. The ejection fraction is estimated to be 50-55%. There is no Doppler evidence for an atrial septal defect. There is mild mitral regurgitation. Assessment & Plan 59-year-old male with multiple medical issues and notable for DM, HTN, CVA and TIAs, CAD, post pacemaker in the past presents with report of about 3 days of LUE and LLE numbness and tingling with left LE symptoms already resolved prior to arriving to floor. # Acute and recurrent left sided numbness and paraesthesia. poa. ongoing but improving - Unclear to me at this point if this is a new onset CVA/TIA vs acute exacerbation of prior symptoms vs diabetic neuropathy. - Will continue to observe on Tele - Unable to obtain MRI 2ndry to pacemaker -CT angiogram of the head and neck shows total occlusion of the right internal carotid at its origin. We will discuss the significance of this with Dr. Arango. - Continue with home dose ASA + Plavix + Statin - And will discuss with neurology data communications software consultant Dr. Arango. - PT/OT - He has had multiple echocardiograms for workup of TIA/CVA (last one in March 2016) which I will not order at this time unless recommended by neurology consult. # Small wound/ulceration on left arm from recent cat scratch. - The scratch does not seem infected - And 2 new wound care and dressing # History of ulcerative colitis. stable -Continue with home meds and supportive care # Type 1 diabetes. chronic. And with evidence of noncompliance due to markedly elevated hemoglobin A1c of 12.1 -Continue with home dose Insulin -Continue to cover w/ ISS - HgA1C was 12.1 -We will offer patient diabetic counseling. # Diastolic heart failure, chronic. stable - c/w home dose Lasix # Hypertension. chronic. stable - c/w home BP meds # Hyperlipidemia. - c/w home dose statin as noted above # Peripheral vascular disease. - ASA, Plavix, Statin, and BP meds as noted Disposition: Dependence on treatment plan recommended by Dr. Arango. GI Prophylaxis: Proton Pump Inhibitor VTE Prophylaxis: Sub-Q Heparin (Unfractionated) VTE Mechanical Devices: Intermittant Pneumatic CD Resuscitation Status: DNR/DNI:Do Not Resuscitate/Intubate (discussed and verified with the patient.) Oz Leung MD Aug 28, 2016 21:01
--- NOTE | 2016-08-28 22:08 | NUR ---
Case Management: Attempted to provide Observation Brochure but patient sleeping soundly. Try again tomorrow am. Kamini Valenzuela RN
[2016-08-29] MEDS: Heparin 5,000 Unit/mL Inj SUBQ SCH ×2 (00:30→08:27)
[2016-08-29 02:10] VITALS: BP 113/62; PULSE 71; RESP 20; O2SAT 96
[2016-08-29 05:26] VITALS: PULSE 67
[2016-08-29 05:47] VITALS: BP 126/74; PULSE 76; RESP 20; O2SAT 96
--- NOTE | 2016-08-29 05:52 | NUR ---
Administrative Dietitian Pt asleep on and off during night. During the night (0300) pt got on his scooter and went for a drive/stroll around the unit. Pleasant and talkative, said he couldn't sleep. Pt reported no pain at beginning of shift but around 0400 reported cramping toe pain. IV morphine administered and pain relieved as pt was back sleeping. Pt planning on being discharged this morning pending review of CT scan.
[2016-08-29] MEDS: Pantoprazole 40 mg ER24 Tablet PO SCH (06:32)
[2016-08-29 06:49] LABS: BASOPHILS % (AUTO) 0.9 % (0-3); EOSINOPHILS % (AUTO) 6.7 % (0-5); MONOCYTES % (AUTO) 9.5 % (4-12); Mean Corpuscular Hemoglobin 27.5 pg (27.0-35.0); Mean Corpuscular Volume 86.7 fL (81-100); NEUTROPHILS % (AUTO) 54.9 % (40-74); Platelet Count 264 bil/L (150-400)
[2016-08-29] MEDS: Insulin Human REGular 300 Unit/3 mL Inj SUBQ SCH (07:30)
[2016-08-29 08:00] VITALS: PULSE 77
[2016-08-29 08:15] VITALS: PULSE 73; O2SAT 98
[2016-08-29] MEDS: Tolterodine ER 4 mg ER24 Capsule PO SCH (08:27)
[2016-08-29] MEDS: Potassium Chloride 20 mEq SR Tablet PO SCH (08:27)
[2016-08-29] MEDS: MeTOProlol XL 25 mg ER24 Tablet PO SCH (08:27)
[2016-08-29 08:30] VITALS: BP 121/66; PULSE 75; RESP 20; O2SAT 94
--- NOTE | 2016-08-29 08:51 | PCM.DIMED ---
Discharge Instructions Date of Service Aug 29, 2016 Dates of Hospitalization Aug 27, 2016 at 16:34 Discharge Diagnosis Discharge Diagnosis Transient Ischemic Attack Diet Heart Healthy, Diabetic Activity No restrictions (May resume usual activity gradually as tolerated) Call your provider Fever or Chills, Shortness of breath, Bleeding, Chest pain, Vomitting, Excessive diarrhea, Weakness (unilateral), Other Patient Instructions Follow-up Provider: Kareem Márquez MD Follow-up with PCP in: 1 week Follow-up in: 1 week ([facility]) Oz Leung MD Aug 29, 2016 08:51
--- NOTE | 2016-08-29 09:02 | NUR ---
Social Work: Discharge Data: Pt is on day 2 of hospitalization. EMR reviewed, d/c orders are in. No further d/c needs at this time. PIT SUPERVISOR will continue to follow if needs arise. Assessment: Pt who is independent at baseline. Plan: Pt will d/c home via bus system with [facility] [employer] [facility] to continue coming into his home for assistance twice a week. No further d/c needs at this time. PIT SUPERVISOR will continue to follow if needs arise. NAFISA Cyr
--- NOTE | 2016-08-29 09:58 | NUR ---
discharge paperwork review, no questions at this time. pt has a power-scooter and chooses to drive himself out of the hospital. pt denies any pain/distress at this time. pt has all his belongings in a white bag and backpack.
[2016-08-29] MEDS ORDERED: MESALAMINE 1.2 GM PO SCH (16:30)
--- NOTE | 2016-08-30 00:25 | PCM.DC.MED ---
Discharge Summary Date of Service Aug 29, 2016 Dates of Hospitalization Date of Hospital Admission Aug 27, 2016 at 16:34 Date of Discharge: Aug 29, 2016 Providers: Admitting Physician: Lamont Schuster Primary Care Physician: Kareem Márquez MD Attending Physician: Lamont Schuster Diagnosis at Time of Discharge Diagnosis at Time of Discharge Transient Ischemic Attack Procedures XRay, CTs & MRIs Date of Service: 08/27/16 1018 PROCEDURE: CT BRAIN WITHOUT CONTRAST ([id number]) IMPRESSION: Mild mucosal thickening involving the ethmoid air cells. There is no acute or subacute stroke or hemorrhage identified and there is mild to moderate atherosclerotic change. Several small lucencies adjacent to the ventricles are again seen without change from prior comparison CT scans, indicating likelihood of several small lacunar infarctions in the past. Depending on the clinical status followup by MR scanning may be warranted. Dictated by: Jg Robert M.D. on 08/27/2016 at 11:21 Approved by: Jg Robert M.D. on 08/27/2016 at 11:21 PROCEDURE: CT ANGIO HEAD AND NECK (P) INDICATIONS: Stroke/TIA TECHNIQUE: Pre-contrast 4.5 mm thick sections acquired from the foramen magnum to the vertex. After the administration of intravenous contrast, 1 mm thick sections acquired from the aortic arch through the [place] of [place]. Post-contrast 4.5 mm thick sections then re-acquired from the foramen magnum to the vertex. 3- dimensional zmsirvy-mhwtlynjp-ipexzdbxab (MIP) and/or volume rendering reformats were acquired of the central intracranial vasculature and neck separately. For radiation dose reduction, the following was used: automated exposure control, adjustment of mA and/or kV according to patient size. COMPARISON: [facility], CT, CT BRAIN WO CON, 08/27/2016, 11:07. FINDINGS: Image quality: Excellent. BRAIN: CSF spaces: Ventricles are normal in size and shape. Basal cisterns are patent. No extra-axial fluid collections. Brain: No midline shift. No intracranial bleeds or masses. Rich-white matter interface appears intact. Old, small, lacunar infarcts noted in the basal ganglia bilaterally. Skull and face: Calvarium and facial bones appear intact, without suspicious lesions. Orbits appear normal. Sinuses: Scattered mucosal thickening noted in the ethmoid air cells. The mastoids are clear. HEAD CT ANGIOGRAPHY: Anterior circulation: The right internal carotid artery is occluded. There is reconstitution of flow in the supraclinoid segment of the right internal carotid artery. Atherosclerotic calcifications noted in the [place], cavernous and supraclinoid segments of the left internal carotid artery. Atherosclerotic disease causes high grade stenosis of the cavernous and supraclinoid segments of the left internal carotid artery. The flow within the paired anterior cerebral arteries is normal and symmetric. The flow within the middle cerebral arteries is normal and symmetric. The anterior communicating artery is seen. No aneurysms are seen. Posterior circulation: Visualized portions of the vertebral arteries demonstrate normal contrast opacification and join to form a normal appearing basilar artery. Calcified atherosclerotic plaque noted in the V4 segments of the vertebral arteries bilaterally which does not cause measurable stenosis. Flow within the posterior cerebral arteries is normal and symmetric. No aneurysms are seen. Normal contrast enhancement of the dural sinuses noted. NECK CT ANGIOGRAPHY: Carotid system: The great vessels demonstrate a conventional anatomy as they arise from the aortic arch. The origins of the common carotid arteries appear patent. The common carotid arteries demonstrate normal caliber and courses. The right internal carotid artery is occluded immediately distal to the origin the vessel. The left internal carotid artery is fully patent at its origin. Posterior circulation: The origins of the vertebral arteries both appear widely patent. The more superior extracranial portions of both vertebral arteries also demonstrate normal courses and calibers. They join to form a normal appearing basilar artery. Soft tissues: Visualized neck soft tissues demonstrate no suspicious abnormalities. Left chest wall cardiac pacer is noted. Bones: No suspicious bony lesions. Visualized cervical spine appears normally aligned. IMPRESSION: 1. Right internal carotid artery is a occluded just distal to its origin. Endovascular device is noted in the [place] segment of the right internal carotid remains in place for prior embolization. Please correlate with clinical history. 2. High grade atherosclerotic stenosis involving the cavernous and supraclinoid segments of the left internal carotid artery. 3. No hemodynamically significant stenosis involving the posterior circulation. Dictated by: Jeannine Kohler MD, PhD on 08/28/2016 at 19:19 Approved by: Jeannine Kohler MD, PhD on 08/28/2016 at 19:19 Cardiac Echo Impression Echocardiogram Report Name: GIAN GOETZ WStudy Date : 03/28/2016 Height: 67 in Hospital Exam Location: [facility] Weight: 214 lb Gender: Male BSA: 2.1 m2 : 1955 Age: 60 yrs BP: 110/70 mmHg Reason For Study: CVA Ordering Physician: HOSPITALIST SVHPerformed By: Yogi Plummer Referring Physician: MERLINE LOPEZ Interpretation Summary The study quality was technically difficult. The ejection fraction is estimated to be 50-55%. There is no Doppler evidence for an atrial septal defect. There is mild mitral regurgitation. Brief History 59-year-old male with multiple medical issues as noted below and notable for DM , HTN, CVA and TIAs in the past says that he went to urgent care today earlier today because of a small ulceration that he has on his left arm (after a scratch by his cat) that seems to be slow in healing. At urgent care on he told them that he has been having a ongoing numbness and tingling of his left arm and leg since Thursday (past 3 days now). He did not seek any medical attention earlier for his neurologic symptoms earlier because he says he has had these symptoms before which usually self resolve and he thought he might be having another TIA or paraesthesia due to his diabetes. At any rate, he was directed to come to the ED. In the ED Dr. Tineo (neurologist) was apparently contact who recommended patient be admitted for further observation and consideration of CTA of his brain. No MRI given patient having a pacemaker in place. He tells me that his left leg numbness and tingling seem to have completely resolved while in the ED and he feels that the numbness of his left upper extremity is also improving although not completely resolved yet. He otherwise denies any other issues or complaints. He denies any focal weakness, acute change in his vision or speech. He does not have any dizziness. In the ED he received a dose of ASA 325mg x 1. Patient was admitted to the hospital service for further evaluation and treatment. Hospital Course 59-year-old male with multiple medical issues and notable for DM, HTN, CVA and TIAs, CAD, post pacemaker in the past presents with report of about 3 days of LUE and LLE numbness and tingling with left LE symptoms already resolved prior to arriving to floor. # Acute and recurrent left sided numbness and paraesthesia. poa. ongoing but improving - Unclear to me at this point if this is a new onset CVA/TIA vs acute exacerbation of prior symptoms vs diabetic neuropathy. - Will continue to observe on Tele - Unable to obtain MRI 2ndry to pacemaker -CT angiogram of the head and neck shows total occlusion of the right internal carotid at its origin. I have discussed the significance of this with Dr. Tineo. And his opinion is that since the internal carotid is completely occluded there is little that can be done surgically at this time. However he does recommend that the patient follow-up with the cerebrovascular [place] at [facility] in [place]. Patient was informed of Dr. tineo's recommendations and agrees to follow through. - Continue with home dose ASA + Plavix + Statin - He has had multiple echocardiograms for workup of TIA/CVA (last one in March 2016) which I will not order at this time unless recommended by neurology consult. # Small wound/ulceration on left arm from recent cat scratch. - The scratch does not seem infected - And 2 new wound care and dressing # History of ulcerative colitis. stable -Continue with home meds and supportive care # Type 1 diabetes. chronic. And with evidence of noncompliance due to markedly elevated hemoglobin A1c of 12.1 -Continue with home dose Insulin -Continue to cover w/ ISS - HgA1C was 12.1 -We will offer patient diabetic counseling. # Diastolic heart failure, chronic. stable - c/w home dose Lasix # Hypertension. chronic. stable - c/w home BP meds # Hyperlipidemia. - c/w home dose statin as noted above # Peripheral vascular disease. - ASA, Plavix, Statin, and BP meds as noted Disposition: Patient to be discharged home today. Exam Vital Signs (Last) Date Time Temp Pulse Resp B/P Pulse Ox O2 Delivery O2 Flow Rate FiO2 08/29/16 08:30 36.6 75 20 121/66 94 Room Air Exam General: Patient is in no apparent distress. He has been getting in and out his scooter. HEENT: Head is atraumatic normocephalic. Eyes: Pupils are equally round and reactive to light and accommodation. Extraocular muscles are intact. Sclera are white anicteric. Subconjunctival mucosa is pink. Ears and nose are unremarkable. Oropharynx: There is no mucosal lesions, there is no thrush, there is no pharyngitis. Neck: Is supple, there are no nodes, or masses, or tenderness. Chest: Is clear to auscultation and percussion. There are no rales, rhonchi, wheezes or rubs. Heart: Rate, rhythm, is regular. There is no murmur, rub or gallop. Abdomen: Good bowel sounds are present. Abdomen is soft, nontender, no organomegaly or masses were appreciated. Extremities: Are symmetrical and well perfused. There is no edema, there is no cellulitis, no rash. Neurologic: There are no gross focal neurological deficits. Patient was able to do the finger to nose test however with poor precision. He was able to perform the hqzc-[id number] test without difficulty. He has very poor balance all standing however. Cranial nerves II through XII are intact. There are no other sensory or motor deficits. Patient does have extremely poor peripheral vision. He states this is from numerous laser surgeries on his retina. Psychiatric: Patients mood is calm and shows no sign of agitation. Genital: Deferred Rectal: Deferred Test 08/27/16 10:40 08/27/16 11:22 08/29/16 06:10 Prothrombin Time 9.9sec (8.1-12.5) Prothromb Time International Ratio 0.93ratio Activated Partial Thromboplast Time 24.5sec (22.8-33.0) Hemoglobin A1c 12.1% (4.8-5.6) Troponin T < 0.010ug/L (0.0-0.011) Urine Color Straw (YELLOW) Urine Appearance Hazy (CLEAR,HAZY) Urine pH 5.5 (5.0-8.0) Urine Specific [place] 1.015 (1.003-1.035) Urine Protein Negativemg/dL (NEG,TRACE) Urine Glucose (UA) 500mg/dL (NEGATIVE) Urine Ketones Negativemg/dL (NEGATIVE) Urine Occult Blood Negative (NEGATIVE) Urine Nitrite Negative (NEGATIVE) Urine Bilirubin Negative (NEGATIVE) Urine Urobilinogen Normalmg/dL (NORMAL) Urine Leukocyte Esterase Negative (NEGATIVE) Urine RBC 0-2/hpf (0-2) Urine WBC 0-5/hpf (0-5) Urine Epithelial Cells Occasional/hpf (NONE-MOD) Urine Crystals None seen (NONE SEEN) Urine Bacteria None/hpf (NONE-FEW) Urine Hyaline Casts None/lpf (NONE) Urine Granular Casts None seen (NONE SEEN) Urine Waxy Casts None seen (NONE SEEN) Urine Red Blood Cell Casts None seen (NONE SEEN) Urine White Blood Cell Casts None seen (NONE SEEN) Urine Mucus None seen (None Seen) Urine Trichomonas None seen (NONE SEEN) Urine Yeast None (NONE SEEN) Urinalysis Comment None Urine Culture Reflexed Not indicated Urine Opiates Screen Negative Urine Methadone Screen Negative Urine Barbiturates Screen Negative Urine Amphetamines Screen Negative Urine Benzodiazepines Screen Negative Urine Cocaine Metabolite Screen Negative Urine Cannabinoids Screen Negative White Blood Count 5.8th/mm3 (3.8-10.1) Red Blood Count 4.29mil/mm3 (4.40-5.80) Hemoglobin 11.8g/dL (13.8-17.2) Hematocrit 37.2% (41.0-50.0) Mean Corpuscular Volume 86.7fL (81-100) Mean Corpuscular Hemoglobin 27.5pg (27.0-35.0) Mean Corpuscular Hemoglobin Concent 31.7% (32.0-37.0) Red Cell Distribution Width 13.3% (12.3-15.4) Platelet Count 264bil/L (150-400) Neutrophils (%) (Auto) 54.9% (40-74) Lymphocytes (%) (Auto) 27.5% (14-46) Monocytes (%) (Auto) 9.5% (4-12) Eosinophils (%) (Auto) 6.7% (0-5) Basophils (%) (Auto) 0.9% (0-3) Sodium Level 139mEq/L (134-144) Potassium Level 4.8mEq/L (3.5-5.2) Chloride Level 101mEq/L (97-108) Carbon Dioxide Level 29mmol/L (18-29) Blood Urea Nitrogen 19mg/dL (6-24) Creatinine 0.98mg/dL (0.76-1.27) Estimat Glomerular Filtration Rate 83mL/min (>59) Glucose Level 302mg/dL (60-99) Calcium Level 9.0mg/dL (8.5-10.1) Magnesium Level 2.0mg/dL (1.6-2.6) Total Bilirubin 0.9mg/dL (0.0-1.2) Aspartate Amino Transf (AST/SGOT) 10U/L (0-50) Alanine Aminotransferase (ALT/SGPT) 12U/L (0-44) Alkaline Phosphatase 80U/L (25-160) Total Protein 5.7g/dL (6.4-8.4) Albumin 3.2g/dL (3.4-5.0) Triglycerides Level 144mg/dL (0-149) Cholesterol Level 129mg/dL (100-199) LDL Cholesterol, Calculated 62.200mg/dL (0-99) VLDL Cholesterol 28.800mg/dL HDL Cholesterol 38mg/dL (>39) Cholesterol/HDL Ratio 3.39 (0.0-4.4) Discharge Medications Discharge Medications Aspirin (Aspirin) 81 Mg Tablet 81 MG PO DAILY Prescribed by: LAMONT SCHUSTER MD Atorvastatin (Lipitor) 80 Mg Tablet 80 MG PO DAILY (Reported) Clopidogrel (Clopidogrel) 75 Mg Tablet 75 MG PO DAILY (Reported) Doxazosin Mesylate (Doxazosin Mesylate) 2 Mg Tablet 1 MG PO HS (Reported) Finasteride (Finasteride) 5 Mg Tablet 5 MG PO DAILY (Reported) Furosemide (Furosemide) 20 Mg Tab 20 MG PO DAILY (Reported) Gabapentin (Gabapentin) 600 Mg Tablet 600 MG PO QID (Reported) Insulin Human Lispro (HumaLOG U100 Insulin Vial) 100 Unit/Ml Unit Unknown Dose SQ ACHS (Reported) insulin dosing based on blood sugar, given via insulin pump Losartan Potassium (Losartan Potassium) 25 Mg Tablet 25 MG PO DAILY (Reported) Mesalamine (Lialda) 1.2 Gm Tablet.dr 1.2 GM PO QID (Reported) Metoprolol Succinate ER (Metoprolol Succinate ER) 25 Mg Tab.er.24h 25 MG PO BID (Reported) Oxybutynin Chloride ER (Oxybutynin Chloride ER) 15 Mg Tab.er.24 15 MG PO DAILY ( Reported) Pantoprazole DR (Pantoprazole DR) 40 Mg Tablet.dr 40 MG PO BID (Reported) Potassium Chloride (Potassium Chloride) 20 Meq Tab.er.prt 20 MEQ PO DAILY ( Reported) Ranitidine (Ranitidine) 150 Mg Capsule 150 MG PO BID (Reported) Tamsulosin ER (Tamsulosin ER) 0.4 Mg Cap.er.24h 0.4 MG PO DAILY (Reported) Followup Plan Disposition: Patient is being discharged home today. Discharge Diet: Heart Healthy, Diabetic Discharge Activity: No restrictions (May resume usual activity gradually as tolerated) Follow-up Provider: Kareem Márquez MD Follow-up with PCP in: 1 week Follow-up in: 1 week ([facility] [place]) Time spent Time spent on discharging this patient was greater than 35 minutes, over half of which was involved in counseling and coordination of care. Oz Leung MD Aug 30, 2016 00:25
== END 2016-08-29 09:30 | disposition home or self-care (01) ==
LOC: SED 08:45 → MPC 16:34
PROVIDERS: ADMIT Internal Medicine; ATTEND Internal Medicine
DX: G45.9 Transient cerebral ischemic attack, unspecified (principal); R20.9 Unspecified disturbances of skin sensation; E11.9 Type 2 diabetes mellitus without complications; I50.32 Chronic diastolic (congestive) heart failure; G47.00 Insomnia, unspecified; I10 Essential (primary) hypertension; E78.5 Hyperlipidemia, unspecified; K51.90 Ulcerative colitis, unspecified, without complications; I73.9 Peripheral vascular disease, unspecified; Z79.4 Long term (current) use of insulin; Z79.82 Long term (current) use of aspirin; Z79.899 Other long term (current) drug therapy; Z95.0 Presence of cardiac pacemaker; Z87.891 Personal history of nicotine dependence
CPT/HCPCS: 36415; 70450; 70496; 70498; 80053; 80061; 81000; 81002; 82948; 82962; 83036; 83735; 84484; 85025; 85610; 85730; 92610; 93005; 97161; 99285; G0378; G0463; G0480; G8978; G8979; G8980; J1644; J2270; Q9967

== ENCOUNTER 2016-10-09 13:08 | Emergency (ER) | payer MEDICARE, MEDICAID ==
[2016-10-09] VITALS (7 sets, daily range): BP systolic 84–104; BP diastolic 31–44; PULSE 71–75; RESP 14–21; O2SAT 97–100
[~2016-10-09] VITALS: Ht 170.2 cm; Wt 97.3 kg
[~2016-10-09 13:08] MED LIST changes: -DICY20TA10 PO; -DOXA1TAB PO; +DOXA2TAB PO; +INSLIS SQ; -INSU100C8 SUBQ; -IRON150C19 PO; -MECL-114 PO; -METO25TA6 PO; +METO25TA99 PO; +OXYB15TA PO; -POTA10TA12 PO; +POTA20TA16 PO; -TRAZ-115 PO
[2016-10-09] MEDS ORDERED: 0.9% Sodium Chloride 1,000 ML IV ONE ×2 (13:40→15:20)
[2016-10-09] MEDS ORDERED: Insulin Human REGular-Omnicell 100 Unit/mL IV ONE (13:40)
--- NOTE | 2016-10-09 13:42 | ED.REPORT ---
HPI-General Illness Date of Service Oct 09, 2016 ED Provider: Summer Castellon MD Patient is a 61 year old male w/ a hx of colitis, DM, and CHF who presents to the ED via EMS due to hyperglycemia (453) this morning due to unrecognized pump malfunction. Patient also associates intermittent chest pain for the past week. Today he thinks has given himself a total of 35 units. He denies vomiting. Dr. Kareem Márquez is his PCP. O2 SAT is 100% on arrival. Nursing Notes Stated Complaint: GENERAL Chief Complaint: General Complaint Nursing Notes Reviewed: Yes Allergies: Coded Allergies: Macrolide Antibiotics (Verified Allergy, Severe, 08/27/16) azithromycin (Verified Allergy, Severe, 08/27/16) hydromorphone HCl (Verified Allergy, Severe, 08/27/16) lisinopril (Verified Allergy, Unknown, 08/27/16) methocarbamol (Verified Allergy, Unknown, 08/27/16) paroxetine (Verified Allergy, Unknown, 08/27/16) niacin (Verified Adverse Reaction, Mild, hot and itch, 08/27/16) Scheduled Aspirin (Aspirin) 81 Mg Tablet 81 MG PO DAILY Atorvastatin (Lipitor) 80 Mg Tablet 80 MG PO DAILY Clopidogrel (Clopidogrel) 75 Mg Tablet 75 MG PO DAILY Doxazosin Mesylate (Doxazosin Mesylate) 2 Mg Tablet 1 MG PO HS Finasteride (Finasteride) 5 Mg Tablet 5 MG PO DAILY Furosemide (Furosemide) 20 Mg Tab 20 MG PO DAILY Gabapentin (Gabapentin) 600 Mg Tablet 600 MG PO QID Insulin Human Lispro (HumaLOG U100 Insulin Vial) 100 Unit/Ml Unit Unknown Dose SQ ACHS insulin dosing based on blood sugar, given via insulin pump Losartan Potassium (Losartan Potassium) 25 Mg Tablet 25 MG PO DAILY Mesalamine (Lialda) 1.2 Gm Tablet.dr 1.2 GM PO QID Metoprolol Succinate ER (Metoprolol Succinate ER) 25 Mg Tab.er.24h 25 MG PO BID Oxybutynin Chloride ER (Oxybutynin Chloride ER) 15 Mg Tab.er.24 15 MG PO DAILY Pantoprazole DR (Pantoprazole DR) 40 Mg Tablet.dr 40 MG PO BID Potassium Chloride (Potassium Chloride) 20 Meq Tab.er.prt 20 MEQ PO DAILY Ranitidine (Ranitidine) 150 Mg Capsule 150 MG PO BID Tamsulosin ER (Tamsulosin ER) 0.4 Mg Cap.er.24h 0.4 MG PO DAILY General Time Seen by MD: 13:17 Chief Complaint Other (hyperglycemia due to unrecognzied pump malfunction) Hx Obtained From: Patient Arrived By: Ambulance Sudden in Onset?: Yes Onset Occurred: Just prior to arrival Symptom Duration: Since onset Location: : Chest Radiation: : Does not radiate Severity: Current: Mild Recent Healthcare: No recent doctor visit, No recent hospitalization Similar Sx Previous: No Past Medical History Patient History: Patient reports no known family medical history. Past Medical History Notes: PCP Dr. Márquez Pt in Admitted for fever diarrhea 04/05- with concern for recurrent C diff, but stool PCR panel negative Past Medical History h/o C. diff colitis ho Ulcerative colitis. history of acute hypoxic, hypercapnic respiratory failure requiring intubation and mechanical ventilation for eight days from September 23 through October 13, 2013. Obesity hypoventilation syndrome. History of pulmonary edema. History of GI bleeding associated with ulcerative colitis, gastritis, and esophagitis - pt w/a Dieulefoy lesion on endoscopy 09/23/[address] Ricketts (injected w/Epi, Hemoclip x2) Prior history of liver failure secondary to pravastatin, now resolved. Type 1 diabetes. History of DVT status post inferior vena cava filter by Dr. Edward on September 28, 2013 (patient no longer on Coumadin). Diastolic heart failure with last echocardiogram from September 2013 showing EF of 45%-55%. Status post pacemaker in 1994 for 3rd degree AV block. Insomnia. Depression. Hypertension. Hyperlipidemia. 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 Peripheral vascular disease. Obesity. ho Pneumonia Reports: Congestive heart failure, Coronary artery disease, Diabetes mellitus, GERD, Hyperlipidemia, Hypertension, Stroke, Transient ischemic attack Past Surgical History Right carotid stent Right lower extremity stent Inferior vena cava filter Reports: Carotid endarterectomy Reports: Pacemaker insertion Family History non-contributory Smoking History Former Smoker Social History Alcohol Use: Denies alcohol use Drug Use: Denies drug use Other Social History: Ambulatory Status Wheelchair Review of Systems hyperglycemia (453) Full Review of Systems Cardiovascular: Reports: Chest pain GI: Denies: Vomiting ( v) Complete sys rev & neg: except as marked. Physical Exam anion gap is at 23 Vital Signs Vital Signs Date Time Temp Pulse Resp B/P Pulse Ox O2 Delivery O2 Flow Rate FiO2 10/09/16 15:05 72 18 100/44 99 Room Air 10/09/16 13:32 73 17 90/37 98 Room Air 10/09/16 13:27 73 20 86/31 100 Room Air 10/09/16 13:14 36.4 72 21 84/32 97 Room Air Initial VS: Reviewed Head / Eyes: Atraumatic, Normocephalic, PERRL Respiratory: Breath sounds normal, Clear to auscultation, No respiratory distress Cardiovascular: Regular rate & rhythm, Heart sounds normal, Intact distal pulses Abdomen / GI: Soft, Non-tender, No guarding, No rebound, No distention Skin: Warm, Dry, No cyanosis Neurologic: Alert, Oriented, Nonfocal Psychiatric: Mood/affect normal, Behavior normal, Normal thought content General/Constitutional: Awake Appearance / Presentation: Positive: Pale well profused Mouth: Positive: Mucous membranes dry Lower Extremity / Pelvis / MS: No edema Interpretation & Diagnostics Lab Results Interpretation Result Diagram: 10/09/16 1333 10/09/16 1333 Test 10/09/16 13:33 White Blood Count 10.9th/mm3 (3.8-10.1) Red Blood Count 4.66mil/mm3 (4.40-5.80) Hemoglobin 13.1g/dL (13.8-17.2) Hematocrit 40.5% (41.0-50.0) Mean Corpuscular Volume 86.9fL (81-100) Mean Corpuscular Hemoglobin 28.1pg (27.0-35.0) Mean Corpuscular Hemoglobin Concent 32.3% (32.0-37.0) Red Cell Distribution Width 12.7% (12.3-15.4) Platelet Count 307bil/L (150-400) Neutrophils (%) (Auto) 88.7% (40-74) Lymphocytes (%) (Auto) 6.9% (14-46) Monocytes (%) (Auto) 2.7% (4-12) Eosinophils (%) (Auto) 0.8% (0-5) Basophils (%) (Auto) 0.6% (0-3) Sodium Level 132mEq/L (134-144) Potassium Level 3.9mEq/L (3.5-5.2) Chloride Level 88mEq/L (97-108) Carbon Dioxide Level 18mmol/L (18-29) Blood Urea Nitrogen 27mg/dL (6-24) Creatinine 1.47mg/dL (0.76-1.27) Estimat Glomerular Filtration Rate 52mL/min (>59) Glucose Level 573mg/dL (60-99) Calcium Level 8.9mg/dL (8.5-10.1) Magnesium Level 2.4mg/dL (1.6-2.6) Total Bilirubin 1.7mg/dL (0.0-1.2) Aspartate Amino Transf (AST/SGOT) 17U/L (0-50) Alanine Aminotransferase (ALT/SGPT) 30U/L (0-44) Alkaline Phosphatase 119U/L (25-160) Troponin T < 0.010ug/L (0.0-0.011) Total Protein 6.8g/dL (6.4-8.4) Albumin 3.8g/dL (3.4-5.0) ECG Interpretation Time: 13:28 Interpreted by: ED physician Normal ECG Interpretation: Normal sinus rhythm (74) Rhythm / Conduction: LBBB - incomplete X-Ray Chest Interpretation Chest Xray Interpretation: IMPRESSION: No acute pulmonary process. Dictated by: Krissy Alford M.D. on 10/09/2016 at 14:42 Approved by: Krissy Alford M.D. on 10/09/2016 at 14:44 View: Portable Interpretation / Wet Read by: Interpret - Radiologist Re-Eval/Medical Decision Counseled Regarding: Diagnosis, Lab results, Need for follow-up, When/why to return to ED Discharge & Departure Shift Change Sign-Out Patient Care Transferred: Yes Discussed Complaint(s): Yes Laboratory Evaluation: Lab evaluation discussed Response to Therapy: Improved Type I diabetic presents with nonfunctional insulin pump for 24 hours and hyperglycemia with anion gap of 23. On his third liter fluid currently has had insulin supplementation sugar is down to 300. Like to complete the third liter of fluid will need to repeat metabolic panel to make sure that the anion gap is closing also repeat a troponin is he was complaining of some chest pain upon arrival in the emergency department. Care was turned over to Dr. Nicole with this plan in mind. At his point,anticipate going home after additional evaluation Primary Impression: Hyperglycemia Additional Impression: Complication of insulin pump Discharge Condition All VS Reviewed: Yes Condition: Stable Referrals: Kareem Márquez MD (PCP) Scribe Attestation Portion of this note were transcribed by Gordon Hedrick. I, Dr. Castellon, personally performed the history, physical exam, and medical decision-making: I reviewed and confirmed the accuracy for the information in the transcribed note. Signed by: thierry Mckeon, 10/09/16 1500 copies to: Kareem Márquez MD, Shawna L MD Oct 09, 2016 13:42 GORDON HEDRICK Oct 09, 2016 13:45
[2016-10-09 13:44] LABS: BASOPHILS % (AUTO) 0.6 % (0-3); EOSINOPHILS % (AUTO) 0.8 % (0-5); MONOCYTES % (AUTO) 2.7 % (4-12); Mean Corpuscular Hemoglobin 28.1 pg (27.0-35.0); Mean Corpuscular Volume 86.9 fL (81-100); NEUTROPHILS % (AUTO) 88.7 % (40-74); Platelet Count 307 bil/L (150-400)
[2016-10-09] MEDS: 0.9% Sodium Chloride 1,000 ML IV SCH ×2 (13:53→15:15)
[2016-10-09 13:59] LABS: TROPONIN T < 0.010 ug/L (0.0-0.011)
[2016-10-09 14:08] LABS: Magnesium 2.4 mg/dL (1.6-2.6)
--- NOTE | 2016-10-09 14:45 | DRSVH ---
PROCEDURE: X-RAY CHEST ONE VIEW, PORTABLE ([id number]) INDICATIONS: cp TECHNIQUE: One view of the chest was acquired. COMPARISON: [facility], CR, XR CHEST 1VW (PORTABLE), 03/27/2016, 13:54. FINDINGS: Surgical changes and devices: Pacemaker. Lungs and pleura: No pleural effusions or pneumothorax. Lungs are clear. Mediastinum: Mediastinal contours appear normal. Heart size is normal. Bones and chest wall: No suspicious bony lesions. Overlying soft tissues appear unremarkable. IMPRESSION: No acute pulmonary process. Dictated by: Krissy Alford M.D. on 10/09/2016 at 14:42 Approved by: Krissy Alford M.D. on 10/09/2016 at 14:44
[2016-10-09 16:22] LABS: TROPONIN T < 0.010 ug/L (0.0-0.011)
== END 2016-10-09 18:25 | disposition home or self-care (01) ==
LOC: SED 13:08 → EDUNIT# 13:08 → EDBD 13:08 → SED 18:25
DX: E10.65 Type 1 diabetes mellitus with hyperglycemia (principal); T85.614A Breakdown (mechanical) of insulin pump, initial encounter; X58.XXXA Exposure to other specified factors, initial encounter; Y92.009 Unspecified place in unspecified non-institutional (private) residence as the place of occurrence of the external cause; Y93.89 Activity, other specified; Y99.8 Other external cause status; I50.9 Heart failure, unspecified; I25.10 Atherosclerotic heart disease of native coronary artery without angina pectoris; E78.5 Hyperlipidemia, unspecified; K21.9 Gastro-esophageal reflux disease without esophagitis; Z87.19 Personal history of other diseases of the digestive system; Z87.891 Personal history of nicotine dependence; Z86.73 Personal history of transient ischemic attack (TIA), and cerebral infarction without residual deficits; Z95.0 Presence of cardiac pacemaker; Z79.4 Long term (current) use of insulin; Z79.82 Long term (current) use of aspirin; Z88.1 Allergy status to other antibiotic agents; Z88.8 Allergy status to other drugs, medicaments and biological substances
CPT/HCPCS: 36415; 71010; 80048; 80053; 82948; 83735; 84484; 85025; 93005; 96361; 96374; 99285; J1815; J7030

== ENCOUNTER 2016-11-03 16:09 | Emergency (ER) | payer MEDICARE, MEDICAID ==
[~2016-11-03] VITALS: Ht 170.2 cm; Wt 97.7 kg
[2016-11-03 16:23] VITALS: BP 134/58; PULSE 80; RESP 16; O2SAT 97
--- NOTE | 2016-11-03 17:46 | DRSVH ---
PROCEDURE: X-RAY RIGHT HUMERUS, MINIMUM TWO VIEWS ([id number]) INDICATIONS: pain with numbness in hand unknown injury TECHNIQUE: 3 views of the humerus were acquired. COMPARISON: None. FINDINGS: Bones: No fractures or dislocations. No suspicious bony lesions. Soft tissues: No suspicious soft tissue calcifications. IMPRESSION: No acute radiographic findings. If pain persists, repeat study in 5-7 days is recommende d to exclude occult fracture. Dictated by: Rebeca Schumacher M.D. on 11/03/2016 at 17:44 Approved by: Rebeca Schumacher M.D. on 11/03/2016 at 17:44
--- NOTE | 2016-11-03 17:49 | ED.REPORT ---
HPI-Extremity Problem Upper Date of Service Nov 03, 2016 ED Provider: Evaristo Molina PA-C Shaw is a 61-year-old male with a history of diabetes, [place], alternative colitis , peripheral vascular disease who presents with a chief complaint of right arm pain. He describes pain in the proximal forearm and distal humerus has been present for roughly one day. It is sometimes relieved by and sometimes aggravated by draping his arm over the back of his motorized chair. He seen in urgent care yesterday for this and given some exercises to perform. He presents today because he has developed the sensation that the hand is cold and numb. The patient is right-handed. Denies neck pain, jaw pain, chest pain, palpitations, diaphoresis, shortness of breath, cough, wheeze. Nursing Notes Stated Complaint: R ARM PAIN Chief Complaint: Extremity Trauma Nursing Notes Reviewed: Yes Allergies: Coded Allergies: Macrolide Antibiotics (Verified Allergy, Severe, 11/03/16) azithromycin (Verified Allergy, Severe, 11/03/16) hydromorphone HCl (Verified Allergy, Severe, 11/03/16) lisinopril (Verified Allergy, Unknown, 11/03/16) methocarbamol (Verified Allergy, Unknown, 11/03/16) paroxetine (Verified Allergy, Unknown, 11/03/16) niacin (Verified Adverse Reaction, Mild, hot and itch, 11/03/16) Scheduled Aspirin (Aspirin) 81 Mg Tablet 81 MG PO DAILY Atorvastatin (Lipitor) 80 Mg Tablet 80 MG PO DAILY Clopidogrel (Clopidogrel) 75 Mg Tablet 75 MG PO DAILY Doxazosin Mesylate (Doxazosin Mesylate) 2 Mg Tablet 1 MG PO HS Finasteride (Finasteride) 5 Mg Tablet 5 MG PO DAILY Furosemide (Furosemide) 20 Mg Tab 20 MG PO DAILY Gabapentin (Gabapentin) 600 Mg Tablet 600 MG PO QID Insulin Human Lispro (HumaLOG U100 Insulin Vial) 100 Unit/Ml Unit Unknown Dose SQ ACHS insulin dosing based on blood sugar, given via insulin pump Losartan Potassium (Losartan Potassium) 25 Mg Tablet 25 MG PO DAILY Mesalamine (Lialda) 1.2 Gm Tablet. 1.2 GM PO QID Metoprolol Succinate ER (Metoprolol Succinate ER) 25 Mg Tab.er.24h 25 MG PO BID Oxybutynin Chloride ER (Oxybutynin Chloride ER) 15 Mg Tab.er.24 15 MG PO DAILY Pantoprazole DR (Pantoprazole DR) 40 Mg Tablet.dr 40 MG PO BID Potassium Chloride (Potassium Chloride) 20 Meq Tab.er.prt 20 MEQ PO DAILY Ranitidine (Ranitidine) 150 Mg Capsule 150 MG PO BID Tamsulosin ER (Tamsulosin ER) 0.4 Mg Cap.er.24h 0.4 MG PO DAILY Scheduled PRN oxyCODONE (oxyCODONE) 5 Mg Tablet 5-10 MG PO Q4H PRN PRN For Pain General Time Seen by MD: 17:25 Chief Complaint Forearm injury right Past Medical History Patient History: Patient reports no known family medical history. Past Medical History Notes: PCP Dr. Márquez Pt in Admitted for fever diarrhea 04/05- with concern for recurrent C diff, but stool PCR panel negative Past Medical History h/o C. diff colitis ho Ulcerative colitis. history of acute hypoxic, hypercapnic respiratory failure requiring intubation and mechanical ventilation for eight days from September 23 through October 13, 2013. Obesity hypoventilation syndrome. History of pulmonary edema. History of GI bleeding associated with ulcerative colitis, gastritis, and esophagitis - pt w/a Dieulefoy lesion on endoscopy 09/23/[address] Ricketts (injected w/Epi, Hemoclip x2) Prior history of liver failure secondary to pravastatin, now resolved. Type 1 diabetes. History of DVT status post inferior vena cava filter by Dr. Edward on September 28, 2013 (patient no longer on Coumadin). Diastolic heart failure with last echocardiogram from September 2013 showing EF of 45%-55%. Status post pacemaker in 1994 for 3rd degree AV block. Insomnia. Depression. Hypertension. Hyperlipidemia. 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 Peripheral vascular disease. Obesity. ho Pneumonia Reports: Congestive heart failure, Coronary artery disease, Diabetes mellitus, GERD, Hyperlipidemia, Hypertension, Stroke, Transient ischemic attack Past Surgical History Right carotid stent Right lower extremity stent Inferior vena cava filter Reports: Carotid endarterectomy Reports: Pacemaker insertion Family History non-contributory Smoking History Former Smoker Social History Alcohol Use: Denies alcohol use Drug Use: Denies drug use Other Social History: Ambulatory Status Wheelchair Review of Systems General: Denies fever, chills, malaise. HEENT: Denies congestion, headache, sore throat. Respiratory: Denies dyspnea, cough, shortness of breath, wheezing. Cardiovascular: Denies chest pain, palpitations. Gastrointestinal: Denies vomiting, diarrhea, abdominal pain. Otherwise as noted in HPI. Physical Exam General: Well appearing, well developed, well nourished, no acute distress. Seated in a motorized scooter. Right arm: Normal to inspection, moderately tender over brachial radialis. Pain aggravated by resisted flexion. Wrist, elbow and shoulder are nontender with full range of motion. Head: Atraumatic, normocephalic. Neck: Full range of motion, mild to moderately tender at approximately T1. Eyes: No scleral icterus or injection. No discharge. Vision grossly intact. ENT: Voice clear, hearing grossly intact. Respiratory: Regular rate and rhythm. Breath sounds present, clear to auscultation and equal bilaterally. No respiratory distress. No increased work of breathing, speaks in complete sentences. Cardiovascular: Regular rate and rhythm, without murmur, gallop or rub. No pedal edema. Skin: Warm and dry. Neurological: Deltoid abduction, wrist flexion and extension, finger flexion and abduction strength 5/5 B/L. Sensation to sharp touch reduced in the right third and fifth digits when compared to right. Intact in the first digit. biceps, triceps and brachioradialis reflexes 1+ left arm, absent on right arm Psychological: Alert and oriented. Speech appropriate, linear and logical. Behavior appropriate. Initial Vital Signs Vital Signs (First) Date Time Temp Pulse Resp B/P Pulse Ox O2 Delivery O2 Flow Rate FiO2 11/03/16 16:23 36.7 80 16 134/58 97 Room Air Initial VS: Reviewed, Vital signs normal Interpretation & Diagnostics Lab Results Interpretation Result Diagram: 11/03/16183611/03/161836 Test 11/03/16 18:37 11/03/16 21:16 White Blood Count 7.7th/mm3 (3.8-10.1) Red Blood Count 4.64mil/mm3 (4.40-5.80) Hemoglobin 12.9g/dL (13.8-17.2) Hematocrit 40.2% (41.0-50.0) Mean Corpuscular Volume 86.6fL (81-100) Mean Corpuscular Hemoglobin 27.8pg (27.0-35.0) Mean Corpuscular Hemoglobin Concent 32.1% (32.0-37.0) Red Cell Distribution Width 13.1% (12.3-15.4) Platelet Count 268bil/L (150-400) Neutrophils (%) (Auto) 71.9% (40-74) Lymphocytes (%) (Auto) 13.8% (14-46) Monocytes (%) (Auto) 8.3% (4-12) Eosinophils (%) (Auto) 4.7% (0-5) Basophils (%) (Auto) 1.0% (0-3) D-Dimer < 0.5mg/L (<0.50) Sodium Level 134mEq/L (134-144) Potassium Level 4.5mEq/L (3.5-5.2) Chloride Level 96mEq/L (97-108) Carbon Dioxide Level 23mmol/L (18-29) Blood Urea Nitrogen 17mg/dL (6-24) Creatinine 0.91mg/dL (0.76-1.27) Estimat Glomerular Filtration Rate 91mL/min (>59) Glucose Level 541mg/dL (60-99) Calcium Level 8.9mg/dL (8.5-10.1) Total Bilirubin 0.9mg/dL (0.0-1.2) Aspartate Amino Transf (AST/SGOT) 13U/L (0-50) Alanine Aminotransferase (ALT/SGPT) 23U/L (0-44) Alkaline Phosphatase 104U/L (25-160) Total Protein 6.6g/dL (6.4-8.4) Albumin 4.0g/dL (3.4-5.0) Troponin T 0.010ug/L (0.0-0.011) ECG Interpretation Interpreted by: ED physician Normal ECG Interpretation: Normal rate, Normal sinus rhythm, No acute ischemic changes, Normal QRS, Normal axis, Normal intervals, No change from prior ECGs, Adequate tracing Atrium and Vent Size: Atrial enlargement - L X-Ray Interpretation Xray Interpretation: PROCEDURE: X-RAY RIGHT HUMERUS, MINIMUM TWO VIEWS ([id number]) INDICATIONS: pain with numbness in hand unknown injury TECHNIQUE: 3 views of the humerus were acquired. COMPARISON: None. FINDINGS: Bones: No fractures or dislocations. No suspicious bony lesions. Soft tissues: No suspicious soft tissue calcifications. IMPRESSION: No acute radiographic findings. If pain persists, repeat study in 5-7 days is recommended to exclude occult fracture. Interpretation / Wet Read by: Interpret - Radiologist, Amadou - [place] Re-Eval/Medical Decision Med Decision/Clinical Course 61-year-old male presents with chief complaint of right arm pain. States it began yesterday after working on his motorized chair, which involved some heavy lifting. Localizes pain to the proximal forearm and distal humerus. Physical examination is normal except for tenderness over the brachial radialis , which is aggravated with resisted flexion and some mild tenderness over T1. I discussed the case with who met with and examine the patient. EKG, troponin, d-dimer, blood work is reassuring with the exception of glucose measured at 541. Patient describes himself as a fragile diabetic, stating high glucose readings are relatively normal for him. Patient bolused himself from his insulin pump. Provided 1 L of normal saline bolus. Repeat troponin is normal and repeated glucose reading one hour after 1 L of normal saline and insulin from the patient's pump is significantly lower at 234. I believe this is musculoskeletal pain and do not think this is cardiac, a DVT or radiculopathy. The patient stabilization be discharged to home. Provided structures for [id number] analgesia as well as a prescription for small amount of oxycodone to supplement with precautions. Advised primary care follow -up, provided return precautions. Patient understands and agrees with the plan. Re-Evaluation/Progress : Time of Eval: 23:37 Re-Evaluation/Progress Note: Patient's blood glucose level was noted to be 541. Patient has bolused himself using his insulin pump. Started 1 NS bolus. Will reassess glucose and troponin in 1 hour. Discharge & Departure Impression: Primary Impression: Muscle strain of right upper extremity Encounter type: initial encounter Qualified Code: S46.911A - Strain of unspecified muscle, fascia and tendon at shoulder and upper arm level, right arm , initial encounter Additional Impression: Hyperglycemia Disposition: Home Discharge Condition All VS Reviewed: Yes Condition: Stable Patient Instructions: Muscle Strain (ED) Additional Instructions: Evaluation for right arm pain emergency Department. EKG blood work are reassuring this is unlikely to be a cardiac event or a blood clot. This is most likely musculoskeletal pain related to your overexertion changing the tire on your chair. I recommend rest and applying ice 2-3 times a day. The pain is best treated with 1000 mg of acetaminophen (Tylenol) every 6 hours. I will provide you with a prescription for a small amount of oxycodone for pain not controlled by Tylenol. Please not drive or drink alcohol with taking oxycodone. Bernard noted that her glucose was 541. After treatment with your insulin pump and a liter of IV fluid, your glucose came down to more acceptable level. Please follow-up with Dr. Márquez to assess your progress with your arm as well as your blood sugar and the functionality of your insulin pump. Return to emergency department for any new or worsening symptoms including chest pain, difficulty breathing, repeated vomiting or abdominal pain. Referrals: Kareem Márquez MD (PCP) EDSupervising Provider for APC: David Walshibe Attestation Evaristo asked me to take a look at this gentleman. I introduce myself the Shaw took a history of performed a physical examination. Shaw tells me that a couple days ago he had to roll his electric cart over to change the tires. In doing so he pulled with his right arm. Since that moment he has had pain over the right brachial radialis that rate the 8 and was right neck. Certain positions help the pain certain positions worsen the pain. On my examination his right brachial radialis was tender. Especially when I had him perform what is called a hammer curl. This reproduces the pain fully. He has bounding pulses. He does not have evidence of a cervical radiculopathy. Serial troponins were negative. I understand that we did this because he is diabetic with arm pain. That sounds reasonable. Negative d-dimer. Dissection pulmonary emboli DVT and acute coronary syndrome all seem to be highly unlikely. This gentleman injured his arm rolling his cart over. As such we will treat him for muscular skeletal pain but we will have close outpatient follow-up. copies to: Kareem Márquez MD, Seth PA-C Nov 03, 2016 17:49 David Walsh DO Nov 04, 2016 19:43
[2016-11-03 18:55] LABS: EOSINOPHILS % (AUTO) 4.7 % (0-5); MONOCYTES % (AUTO) 8.3 % (4-12); Mean Corpuscular Hemoglobin 27.8 pg (27.0-35.0); Mean Corpuscular Volume 86.6 fL (81-100); NEUTROPHILS % (AUTO) 71.9 % (40-74); Platelet Count 268 bil/L (150-400)
[2016-11-03 19:25] LABS: TROPONIN T < 0.010 ug/L (0.0-0.011)
[2016-11-03] MEDS ORDERED: 0.9% Sodium Chloride 1,000 ML IV ONE (20:15)
[2016-11-03 20:53] VITALS: BP 141/79; PULSE 68; RESP 16; O2SAT 97
[2016-11-03] MEDS ORDERED: OXYC5TAB72 PO (21:19)
[2016-11-03] MEDS ORDERED: _oxyCODONE/APAP 5-325 mg Tablet PO PRN (22:35)
[2016-11-03 23:00] VITALS: BP 129/73; PULSE 70; RESP 18; O2SAT 96
== END 2016-11-03 23:00 | disposition home or self-care (01) ==
LOC: SED 16:09
DX: S46.911A Strain of unspecified muscle, fascia and tendon at shoulder and upper arm level, right arm, initial encounter (principal); X50.0XXA Overexertion from strenuous movement or load, initial encounter; Y93.89 Activity, other specified; Y92.89 Other specified places as the place of occurrence of the external cause; Y99.8 Other external cause status; E11.65 Type 2 diabetes mellitus with hyperglycemia; R20.0 Anesthesia of skin; I11.0 Hypertensive heart disease with heart failure; E10.59 Type 1 diabetes mellitus with other circulatory complications; I50.30 Unspecified diastolic (congestive) heart failure; I25.10 Atherosclerotic heart disease of native coronary artery without angina pectoris; K21.9 Gastro-esophageal reflux disease without esophagitis; E78.5 Hyperlipidemia, unspecified; Z86.73 Personal history of transient ischemic attack (TIA), and cerebral infarction without residual deficits; Z95.0 Presence of cardiac pacemaker; Z95.5 Presence of coronary angioplasty implant and graft; Z79.82 Long term (current) use of aspirin; Z79.4 Long term (current) use of insulin; Z87.891 Personal history of nicotine dependence; Z88.1 Allergy status to other antibiotic agents; Z88.5 Allergy status to narcotic agent; Z88.8 Allergy status to other drugs, medicaments and biological substances
CPT/HCPCS: 36415; 73060; 80053; 82948; 84484; 85025; 85379; 93005; 96360; 99285; J7030

== ENCOUNTER 2016-11-05 07:17 | Emergency (ER) | payer MEDICARE, MEDICAID ==
[~2016-11-05 07:17] MED LIST changes: +OXYC5TAB72 PO
[2016-11-05 07:26] VITALS: BP 159/73; PULSE 78; RESP 16; O2SAT 97
--- NOTE | 2016-11-05 07:40 | ED.REPORT ---
HPI-General Illness Date of Service Nov 05, 2016 ED Provider: Sina Harper MD The patient is a 61 year old male with history of diabetes mellitus, hypertension, hyperlipidemia, and peripheral vascular disease, who presents to the emergency department complaining of right upper extremity pain that began a few days ago. His pain began when he was fixing something on his wheelchair. His pain came on gradually. With some movements he has noticed numbness in his right hand. He was seen in the emergency department 2 days ago for the same. He had a negative x-ray and EKG. He was discharged home with a small amount of Percocet. After he went home he took the pain medication and his pain would temporarily resolve then return a few hours later. This morning he woke up and took another Percocet and developed nausea. He denies shoulder pain, neck pain, chest pain or weakness. He has not been taking his gabapentin for a few days. Nursing Notes Stated Complaint: FEELS BAD Chief Complaint: Male Abdominal Pain Nursing Notes Reviewed: Yes Allergies: Coded Allergies: Macrolide Antibiotics (Verified Allergy, Severe, 11/03/16) azithromycin (Verified Allergy, Severe, 11/03/16) hydromorphone HCl (Verified Allergy, Severe, 11/03/16) lisinopril (Verified Allergy, Unknown, 11/03/16) methocarbamol (Verified Allergy, Unknown, 11/03/16) paroxetine (Verified Allergy, Unknown, 11/03/16) niacin (Verified Adverse Reaction, Mild, hot and itch, 11/03/16) Scheduled Aspirin (Aspirin) 81 Mg Tablet 81 MG PO DAILY Atorvastatin (Lipitor) 80 Mg Tablet 80 MG PO DAILY Clopidogrel (Clopidogrel) 75 Mg Tablet 75 MG PO DAILY Doxazosin Mesylate (Doxazosin Mesylate) 2 Mg Tablet 1 MG PO HS Finasteride (Finasteride) 5 Mg Tablet 5 MG PO DAILY Furosemide (Furosemide) 20 Mg Tab 20 MG PO DAILY Gabapentin (Gabapentin) 600 Mg Tablet 600 MG PO QID Insulin Human Lispro (HumaLOG U100 Insulin Vial) 100 Unit/Ml Unit Unknown Dose SQ ACHS insulin dosing based on blood sugar, given via insulin pump Losartan Potassium (Losartan Potassium) 25 Mg Tablet 25 MG PO DAILY Mesalamine (Lialda) 1.2 Gm Tablet.dr 1.2 GM PO QID Metoprolol Succinate ER (Metoprolol Succinate ER) 25 Mg Tab.er.24h 25 MG PO BID Oxybutynin Chloride ER (Oxybutynin Chloride ER) 15 Mg Tab.er.24 15 MG PO DAILY Pantoprazole DR (Pantoprazole DR) 40 Mg Tablet.dr 40 MG PO BID Potassium Chloride (Potassium Chloride) 20 Meq Tab.er.prt 20 MEQ PO DAILY Ranitidine (Ranitidine) 150 Mg Capsule 150 MG PO BID Tamsulosin ER (Tamsulosin ER) 0.4 Mg Cap.er.24h 0.4 MG PO DAILY Scheduled PRN oxyCODONE (oxyCODONE) 5 Mg Tablet 5-10 MG PO Q4H PRN PRN For Pain General Time Seen by MD: 07:36 Chief Complaint Other (RUE pain and nausea) Hx Obtained From: Patient, EMS Arrived By: Ambulance Sudden in Onset?: No Onset Occurred: 4 days ago Symptom Duration: Since onset Location: : Arm right Quality: Painful Severity: Current: Moderate Severity: Maximum: Moderate Recent Healthcare: No recent hospitalization, Recent doctor visit Similar Sx Previous: Yes Past Medical History Patient History: Patient reports no known family medical history. Past Medical History Notes: PCP Dr. Márquez Pt in Admitted for fever diarrhea 04/05- with concern for recurrent C diff, but stool PCR panel negative Past Medical History C. diff colitis Ulcerative colitis. History of acute hypoxic, hypercapnic respiratory failure requiring intubation and mechanical ventilation for eight days from September 23 through October 13, 2013. Obesity hypoventilation syndrome. History of pulmonary edema. History of GI bleeding associated with ulcerative colitis, gastritis, and esophagitis Prior history of liver failure secondary to pravastatin, now resolved. Type 1 diabetes mellitus History of DVT status post inferior vena cava filter by Dr. Edward on September 28, 2013 (patient no longer on Coumadin). Diastolic heart failure with last echocardiogram from September 2013 showing EF of 45%-55%. Status post pacemaker in 1994 for 3rd degree AV block. Insomnia. Depression. Hypertension. Hyperlipidemia. 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 Peripheral vascular disease. Obesity. H/o Pneumonia Reports: Coronary artery disease, GERD Past Surgical History Right carotid stent Right lower extremity stent Inferior vena cava filter Reports: Carotid endarterectomy Reports: Pacemaker insertion Family History non-contributory Smoking History Former Smoker Social History Alcohol Use: Denies alcohol use Drug Use: Denies drug use Other Social History: Ambulatory Status Wheelchair Review of Systems Full Review of Systems Cardiovascular: Denies: Chest pain GI: Reports: Nausea Musculoskeletal: Reports: Extremity pain, Denies: Joint pain, Neck pain Neurologic: Reports: Numbness, Denies: Focal weakness Complete sys rev & neg: except as marked. Physical Exam Vital Signs Vital Signs Date Time Temp Pulse Resp B/P Pulse Ox O2 Delivery O2 Flow Rate FiO2 11/05/16 07:26 36.4 78 16 159/73 97 Room Air Initial VS: Reviewed Head / Eyes: Atraumatic, Normocephalic, PERRL ENT: Mucous membranes moist, Conjunctiva normal, No scleral icterus Neck: Supple, Non-tender, Full range of motion Abdomen / GI: Soft, Non-tender, No guarding, No rebound, No distention Extremities: Vascular intact, Neuro intact Skin: Warm, Dry, No cyanosis Neurologic: Alert, Oriented, Nonfocal Psychiatric: Mood/affect normal, Behavior normal, Normal thought content General/Constitutional: Awake, Alert, Cooperative Respiratory / Chest: Atraumatic, Breath sounds NL, Breath sounds = bilat, No respiratory distress, No rales, No rhonchi, No wheezing, No retractions, No stridor, No chest tenderness, No chest wall deformity Cardiovascular: Heart rate NL, Regular rhythm, Heart sounds NL, No gallop, No murmurs, No rubs, Cap refill not delayed, Peripheral circulation NL Upper Extremities Upper Extremity / MS: No deformity, Neurologic intact, Vascular intact External rotation of lower arm causes dorsal pain. Interpretation & Diagnostics ECG Interpretation ECG Interpretation: Normal sinus rhythm with a rate of 73 Time: 07:50 Interpreted by: ED physician Re-Eval/Medical Decision Source of Hx: Old records, EMS Time of Eval: 09:12 Re-Evaluation/Progress Note: Discussed plan for symptom management and discharge. All questions were addressed. Counseled Regarding: Diagnosis, Need for follow-up, When/why to return to ED Discharge & Departure Primary Impression: Muscle strain of right upper extremity Encounter type: subsequent encounter Qualified Code: S46.911D - Strain of unspecified muscle, fascia and tendon at shoulder and upper arm level, right arm , subsequent encounter Additional Impression: Neuropathic pain Disposition: Home Discharge Condition All VS Reviewed: Yes Condition: Stable Patient Instructions: Peripheral Neuropathy (ED) Additional Instructions: Thank you for entrusting us with your care today. Your EKG is reassuring. Your x -ray from your previous visit was negative with no evidence of any fractures. Continue to take your medication as prescribed. We have scheduled you an appointment with Dr. Márquez on November 11 at noon, check in at 11:50 a.m.. Please return to the emergency department for any new or concerning symptoms. Don't use the oxycodone. Instead use your gabapentin 300mg three times daily and hydrocodone/APAP as needed for more severe pain. Referrals: Kareem Márquez MD (PCP) Scribe Attestation Portions of this note were transcribed by Jaince Morley. I, Dr. Harper personally performed the history, physical exam and medical decision-making; I reviewed and confirmed the accuracy of the information in the transcribed note. Signed by: Noemy Chacon, 11/05/2016 at 0930. copies to: Kareem Márquez MD, Kirk H MD Nov 05, 2016 07:40 Janice Morley Nov 05, 2016 07:43
[2016-11-05] MEDS ORDERED: oxyCODONE-Acetamin 10-325 mg Tablet PO ONE (08:05)
[2016-11-05] MEDS ORDERED: HYDROcodone-APAP 5-325 mg Tablet PO ONE (09:15)
[2016-11-05] MEDS ORDERED: HYDR-4003 PO (09:34)
[2016-11-05 09:41] VITALS: BP 145/63; PULSE 73; RESP 14; O2SAT 96
== END 2016-11-05 09:43 | disposition home or self-care (01) ==
LOC: SED 07:17
DX: S46.911A Strain of unspecified muscle, fascia and tendon at shoulder and upper arm level, right arm, initial encounter (principal); X50.1XXA Overexertion from prolonged static or awkward postures, initial encounter; Y92.9 Unspecified place or not applicable; Y93.89 Activity, other specified; Y99.8 Other external cause status; M79.2 Neuralgia and neuritis, unspecified; E11.9 Type 2 diabetes mellitus without complications; I10 Essential (primary) hypertension; E78.5 Hyperlipidemia, unspecified; I73.9 Peripheral vascular disease, unspecified; I50.30 Unspecified diastolic (congestive) heart failure; I25.10 Atherosclerotic heart disease of native coronary artery without angina pectoris; K21.9 Gastro-esophageal reflux disease without esophagitis; E66.9 Obesity, unspecified; Z86.718 Personal history of other venous thrombosis and embolism; Z95.0 Presence of cardiac pacemaker; Z86.73 Personal history of transient ischemic attack (TIA), and cerebral infarction without residual deficits; Z95.818 Presence of other cardiac implants and grafts; Z87.891 Personal history of nicotine dependence; Z99.3 Dependence on wheelchair; Z79.4 Long term (current) use of insulin; Z79.82 Long term (current) use of aspirin; Z88.1 Allergy status to other antibiotic agents; Z88.5 Allergy status to narcotic agent; Z88.8 Allergy status to other drugs, medicaments and biological substances

== ENCOUNTER 2016-11-21 12:06 | Observation (INO) | payer MEDICARE, MEDICAID ==
[~2016-11-21] VITALS: Ht 170.2 cm; Wt 92.2 kg
[2016-11-21 12:06] VITALS: BP 145/57; PULSE 99; RESP 16; O2SAT 96
[~2016-11-21 12:06] MED LIST changes: +HYDR-4003 PO
--- NOTE | 2016-11-21 12:16 | ED.REPORT ---
HPI-Extremity Problem Upper Date of Service Nov 21, 2016 ED Provider: Albino Herron MD Mr. Delgado 's a 61-year-old gentleman with complex medical history who returns to the emergency department for right upper extremity pain, that is persistent for over 2 weeks. He was seen in the emergency department on 11/03/2016 and diagnosed with muscle strain neuropathic pain, he followed up with his primary care doctor for the same complaint which he was given similar diagnosis, yesterday he was seen at urgent care where he was diagnosed with tricep strain with possible tear. He has been given pain medication from his primary care as well as urgent care visit yesterday, he says it does help, he is only taking 1 pill since yesterday. He also conveys that he has been vomiting this morning, total 3 times, no blood present, and is unsure why. The vomiting has made the pain worse, and inhibited him from using an immobilization sling provided to him yesterday. The pain is located in the posterior portion of his right brachium, states the pain travels from his elbow into all of his fingers equally , pain is present at rest posterior lateral portion of his right brachium with radiation into his posterior axilla. There is tenderness to his shoulder over the glenohumeral joint, but not in his elbow. He had an x-ray performed on did not show any fracture of the humerus, though was stated that if pain persists repeat x-ray in 5-7 days for possible occult fracture. Nursing Notes Stated Complaint: RT SHOULDER PAIN Chief Complaint: Extremity Trauma Allergies: Coded Allergies: Macrolide Antibiotics (Verified Allergy, Severe, 11/03/16) azithromycin (Verified Allergy, Severe, 11/03/16) hydromorphone HCl (Verified Allergy, Severe, 11/03/16) lisinopril (Verified Allergy, Unknown, 11/03/16) methocarbamol (Verified Allergy, Unknown, 11/03/16) paroxetine (Verified Allergy, Unknown, 11/03/16) niacin (Verified Adverse Reaction, Mild, hot and itch, 11/03/16) Scheduled Aspirin (Aspirin) 81 Mg Tablet 81 MG PO DAILY Atorvastatin (Lipitor) 80 Mg Tablet 80 MG PO HS Clopidogrel (Clopidogrel) 75 Mg Tablet 75 MG PO QAM Doxazosin Mesylate (Doxazosin Mesylate) 2 Mg Tablet 1 MG PO HS Finasteride (Finasteride) 5 Mg Tablet 5 MG PO QAM Furosemide (Furosemide) 20 Mg Tab 20 MG PO QAM Gabapentin (Gabapentin) 600 Mg Tablet 600 MG PO TID 0900, 1500, 2100 Insulin Human Lispro (HumaLOG U100 Insulin Vial) 100 Unit/Ml Unit Unknown Dose SQ ACHS insulin dosing based on blood sugar, given via insulin pump Iron Polysaccharides Complex (Poly-Iron) 150 Mg Capsule 150 MG PO QAM Losartan Potassium (Losartan Potassium) 25 Mg Tablet 25 MG PO QAM Mesalamine (Lialda) 1.2 Gm Tablet.dr 2.4 GM PO BIDWM Metoprolol Succinate ER (Metoprolol Succinate ER) 25 Mg Tab.er.24h 25 MG PO BID Oxybutynin Chloride ER (Oxybutynin Chloride ER) 15 Mg Tab.er.24 15 MG PO QAM Pantoprazole DR (Pantoprazole DR) 40 Mg Tablet.dr 40 MG PO BIDAC Potassium Chloride (Potassium Chloride) 20 Meq Tab.er.prt 20 MEQ PO QAM Tamsulosin (Flomax) 0.4 Mg Capsule 0.4 MG PO HS Tolterodine Tartrate ER (Detrol LA) 4 Mg Capsule 4 MG PO QAM Trazodone (Trazodone) 50 Mg Tablet 25-50 MG PO HS Scheduled PRN Benzonatate (Benzonatate) 200 Mg Capsule 200 MG PO TID PRN PRN For Cough Hydrocodone-Acetaminophen 5-325 mg (Hydrocodone-Acetaminophen 5-325 mg) 1 Each Tablet 1 TABLET PO Q8H PRN PRN For Pain Meclizine (Bonine) 25 Mg Tab.chew 25 MG PO BID PRN PRN VERTIGO/NAUSEA Miscellaneous Medications Ranitidine (Ranitidine) 150 Mg Capsule 150 MG PO General Time Seen by MD: 12:14 Chief Complaint Arm injury right Past Medical History Patient History: Patient reports no known family medical history. Past Medical History Notes: PCP Dr. Márquez Pt in Admitted for fever diarrhea 04/05- with concern for recurrent C diff, but stool PCR panel negative Past Medical History C. diff colitis Ulcerative colitis. History of acute hypoxic, hypercapnic respiratory failure requiring intubation and mechanical ventilation for eight days from September 23 Obesity hypoventilation syndrome. History of pulmonary edema. History of GI bleeding associated with ulcerative colitis, gastritis, and esophagitis Prior history of liver failure secondary to pravastatin, now resolved. Type 1 diabetes mellitus History of DVT status post inferior vena cava filter by Dr. Edward on September 28, 2013 (patient no longer on Coumadin). Diastolic heart failure with last echocardiogram from September 2013 showing EF of 45%-55%. Status post pacemaker in 1994 for 3rd degree AV block. Insomnia. Depression. Hypertension. Hyperlipidemia. 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 Peripheral vascular disease. Obesity. H/o Pneumonia Reports: Coronary artery disease, GERD Past Surgical History Right carotid stent Right lower extremity stent Inferior vena cava filter ICD in place Reports: Carotid endarterectomy Reports: Pacemaker insertion Family History non-contributory Smoking History Former Smoker Social History Alcohol Use: Denies alcohol use Drug Use: Denies drug use Other Social History: Ambulatory Status Wheelchair Review of Systems Complete sys rev & neg: except as marked. Physical Exam General: Laying in bed, moderately disheveled, did not appear to be in distress prior to entering the room. HEENT: Normocephalic, atraumatic, EOMI grossly, mucous membranes dry, conjunctiva pink, neck is supple, no lymphadenopathy, no JVD appreciated Cardiovascular: Regular rate and rhythm, no clicks murmurs rubs, peripheral pulses 2/4 equal bilaterally left anterior wall deformity consistent with cardiac support device. Pulmonary: Clear to auscultation bilaterally, no W/R/R. Abdominal: Soft to palpation, bowel sounds present 4, no hepatosplenomegaly. Negative rebound. There is insulin pump inserted into his abdomen, insertion site is without erythema, tenderness, and is dry. Extremities: No edema appreciated. Right upper extremity is able to be moved without hesitation, he actively reaches for couple water and uses his right arm exclusively to drink from. He is able to move his arm over his head and states that it is a position of these for him. There is no tenderness over the elbow, there is tenderness over the triceps belly, there is tenderness at the posterior anterior axilla. There is tenderness over the glenohumeral joint, and all bony prominences of the shoulder as well as the soft tissues of the shoulder. There is no discoloration, no warmth, no cords appreciated. Neuro: Neurologically grossly intact. Full sensation in right upper extremity, equal to left or her extremity. MSK: Strength is limited by pain to the right upper extremity. There is muscle wasting to the lower extremities Initial Vital Signs Vital Signs (First) Date Time Temp Pulse Resp B/P Pulse Ox O2 Delivery O2 Flow Rate FiO2 11/21/16 12:06 36.6 99 16 145/57 96 Room Air Initial VS: Reviewed Interpretation & Diagnostics Lab Results Interpretation Result Diagram: 11/21/16 1320 Test 11/21/16 04:07 11/21/16 13:20 11/21/16 14:32 Hold Purple Top Tube Received (Received) Hold Blue Top Tube Received (Received) Sodium Level 137mEq/L (134-144) Potassium Level 4.9mEq/L (3.5-5.2) Chloride Level 91mEq/L (97-108) Carbon Dioxide Level 12mmol/L (18-29) Blood Urea Nitrogen 20mg/dL (6-24) Creatinine 1.18mg/dL (0.76-1.27) Estimat Glomerular Filtration Rate 67mL/min (>59) Glucose Level 492mg/dL (60-99) Osmolality 325 (275-300) Calcium Level 10.6mg/dL (8.5-10.1) Total Bilirubin 1.2mg/dL (0.0-1.2) Aspartate Amino Transf (AST/SGOT) 13U/L (0-50) Alanine Aminotransferase (ALT/SGPT) 23U/L (0-44) Alkaline Phosphatase 114U/L (25-160) Total Protein 8.3g/dL (6.4-8.4) Albumin 4.6g/dL (3.4-5.0) Hold Red Top Tube Received (Received) Hold [place] Top Tube Received (Received) Hold [place] Top Tube Received (Received) Ketones Small (Negative) Urine Color Yellow (YELLOW) Urine Appearance Clear (CLEAR,HAZY) Urine pH 5.5 (5.0-8.0) Urine Specific [place] 1.025 (1.003-1.035) Urine Protein Negativemg/dL (NEG,TRACE) Urine Glucose (UA) >1000mg/dL (NEGATIVE) Urine Ketones >80mg/dL (NEGATIVE) Urine Occult Blood Negative (NEGATIVE) Urine Nitrite Negative (NEGATIVE) Urine Bilirubin Negative (NEGATIVE) Urine Urobilinogen Normalmg/dL (NORMAL) Urine Leukocyte Esterase Negative (NEGATIVE) Urine RBC 0-2/hpf (0-2) Urine WBC 0-5/hpf (0-5) Urine Epithelial Cells Occasional/hpf (NONE-MOD) Urine Crystals None seen (NONE SEEN) Urine Bacteria None/hpf (NONE-FEW) Urine Hyaline Casts None/lpf (NONE) Urine Granular Casts None seen (NONE SEEN) Urine Waxy Casts None seen (NONE SEEN) Urine Red Blood Cell Casts None seen (NONE SEEN) Urine White Blood Cell Casts None seen (NONE SEEN) Urine Mucus None seen (None Seen) Urine Trichomonas None seen (NONE SEEN) Urine Yeast None (NONE SEEN) Urine Culture Reflexed Not indicated Lab Results Interpretation: Low serum bicarbonate, hyperglycemia, serum hyperosmolality, and ion gap of 32, urine and serum ketones present ECG Interpretation ECG Interpretation: Heart rate 96 Sinus rhythm "Incomplete left bundle branch block" DC interval 150, QTC 450. No signs of acute infarct or ischemia. X-Ray Chest Interpretation Chest Xray Interpretation: Chest Xray IMPRESSION: Light film technique, mildly reduced inspiratory volume. No pneumonia found, no acute CHF suspected. Cardiac pacemaking device and dual chamber leads appear normal, stable over time. Dictated by: Jg Robert M.D. on 11/21/2016 at 14:20 Imaging personally reviewed View: Portable Interpretation / Wet Read by: Interpret - ED physician X-Ray Interpretation Xray Interpretation: Right Humerus Xray IMPRESSION: Source of humerus pain is not identified. Dictated by: Jg Robert M.D. on 11/21/2016 at 14:21 R shoulder Xray IMPRESSION: No fracture or dislocation found. Dictated by: Jg Robert M.D. on 11/21/2016 at 14:20 Imaging personally reviewed Interpretation / Wet Read by: Interpret - ED physician Re-Eval/Medical Decision Med Decision/Clinical Course Patient was evaluated for the ongoing potentially worsening pain of his right upper extremity, x-rays of his shoulder and humerus were negative, given his complaint of shortness of breath he underwent chest x-ray, and due to vomiting CMP was checked. He was found to have low bicarbonate, and significantly elevated blood glucose of nearly 500. He had an anion gap of 32, and ketones in his blood and urine. Based on these findings insulin drip was started, IV fluids were started, and patient was admitted for diabetic ketoacidosis. Unable to find cause of pain to his right upper extremity, centered at the previous physician's assessment that this is tricep strain, possible tendon involvement. Discharge & Departure Impression: Primary Impression: Diabetic ketoacidosis without coma Diabetes mellitus type: type 2 Qualified Code: E13.10 - Other specified diabetes mellitus with ketoacidosis without coma Disposition: ADMITTED TO HOSPITAL Discharge Condition All VS Reviewed: Yes Condition: Improved Referrals: Kareem Márquez MD (PCP) Crit Care Except Billable Proc Time Spent: 30-74 minutes Services Performed: Patient management by me, Time spent at bedside, Reviewing test results, Reviewing imaging, Discussing patient care, Documentation in record, Time with fam/surrogate EDSupervising Provider for APC: Albino Herron MD Attending Statement Discussed patient with resident Miriam. Evaluated patient independently and agree with assessment and plan as above. In brief, 89-year-old male history of diabetes presenting with right upper arm pain. He was noted to have a blood sugar in the 400s on arrival. His bicarbonate was 12. Small ketones serum. Anion gap 34. Osms 234. Admitted for DKA. Insulin gtt, IVFs. copies to: Kareem Márquez MD, Ben M MD Nov 21, 2016 12:16 Rahat Pineda DO Nov 21, 2016 13:20
[2016-11-21] MEDS ORDERED: Ondansetron 2 mg/mL 2 mL Inj IVPUSH ONE (12:40)
[2016-11-21] MEDS ORDERED: 0.9% Sodium Chloride 1,000 ML IV ONE (12:40)
[2016-11-21] MEDS ORDERED: (U-500) Insulin Regluar, Human 500 Unit/mL Syringe SUBQ ONE (14:00)
[2016-11-21] MEDS ORDERED: Insulin Human REGular-Omnicell 100 Unit/mL SUBQ ONE (14:10)
--- NOTE | 2016-11-21 14:22 | DRSVH ---
PROCEDURE: X-RAY RIGHT SHOULDER, MINIMUM TWO VIEWS ([id number]) INDICATIONS: Right upper extremity pain, Shoulder tenderness TECHNIQUE: 3 views of the shoulder were acquired. COMPARISON: None. FINDINGS: Bones: No fractures or dislocations. No suspicious bony lesions. Visualized ribs appear intact. Soft tissues: No suspicious soft tissue calcifications. IMPRESSION: No fracture or dislocation found. Dictated by: Jg Robert M.D. on 11/21/2016 at 14:20 Approved by: Jg Robert M.D. on 11/21/2016 at 14:20
--- NOTE | 2016-11-21 14:23 | DRSVH ---
PROCEDURE: X-RAY CHEST ONE VIEW, PORTABLE ([id number]) INDICATIONS: Shortness of breath TECHNIQUE: One view of the chest was acquired. COMPARISON: [facility], CR, XR CHEST 1VW (PORTABLE), 10/09/2016, 13:42. FINDINGS: Surgical changes and devices: Pacemaking device and dual chamber leads normal. Lungs and pleura: No pleural effusions or pneumothorax. Lungs are clear. Mediastinum: Mediastinal contours appear normal. Heart size is normal. Bones and chest wall: No suspicious bony lesions. Overlying soft tissues appear unremarkable. IMPRESSION: Light film technique, mildly reduced inspiratory volume. No pneumonia found, no acute CH F suspected. Cardiac pacemaking device and dual chamber leads appear normal, stable over time. Dictated by: Jg Robert M.D. on 11/21/2016 at 14:20 Approved by: Jg Robert M.D. on 11/21/2016 at 14:21
--- NOTE | 2016-11-21 14:24 | DRSVH ---
PROCEDURE: X-RAY RIGHT HUMERUS, MINIMUM TWO VIEWS ([id number]) INDICATIONS: HUMERUS PAIN TECHNIQUE: 2 views of the humerus were acquired. COMPARISON: [facility], CR, XR HUMERUS 2VW RT, 11/03/2016, 16:56. FINDINGS: Bones: No fractures or dislocations. No suspicious bony lesions. Soft tissues: No suspicious soft tissue calcifications. IMPRESSION: Source of humerus pain is not identified. Dictated by: Jg Robert M.D. on 11/21/2016 at 14:21 Approved by: Jg Robert M.D. on 11/21/2016 at 14:22
[2016-11-21 14:30] VITALS: BP 131/53; PULSE 97; RESP 17; O2SAT 94
[2016-11-21 14:47] LABS: APPEARANCE,URINE CLEAR (CLEAR,HAZY); COLOR,URINE YELLOW (YELLOW)
[2016-11-21 14:48] LABS: OCCULT BLOOD,URINE NEGATIVE (NEGATIVE); PH,URINE 5.5 (5.0-8.0); UROBILINOGEN,URINE NORMAL (NORMAL)
[2016-11-21] MEDS ORDERED: Insulin Human REGular Inj 100 UNIT in 0.9% Sodium Chloride-Pha MIX 100 ML IV SCH (15:09)
[2016-11-21] MEDS ORDERED: HYDROcodone-APAP 5-325 mg Tablet PO PRN (15:30)
[2016-11-21] MEDS ORDERED: 0.9% Sodium Chloride 1,000 ML IV SCH (15:35)
[2016-11-21] MEDS ORDERED: Ondansetron 2 mg/mL 2 mL Inj IVPUSH PRN (15:45)
[2016-11-21] MEDS ORDERED: Alum-Mag Hydrox-Simeth 30 mL Suspension PO PRN (15:45)
[2016-11-21] MEDS ORDERED: MECL-114 PO (16:09)
[2016-11-21] MEDS ORDERED: MESA1.2T2 PO (16:09)
[2016-11-21] MEDS ORDERED: HYDR-4003 PO (16:09)
[2016-11-21] MEDS ORDERED: BENZ200C44 PO (16:09)
[2016-11-21] MEDS ORDERED: TRAZ-115 PO (16:09)
[2016-11-21] MEDS ORDERED: DETROL LA4 M1 PO (16:09)
[2016-11-21] MEDS ORDERED: IRON150C14 PO (16:09)
[2016-11-21] MEDS ORDERED: TAMS0.4C98 PO (16:11)
[2016-11-21 16:18] VITALS: BP 126/75; PULSE 94; RESP 18; O2SAT 98
[2016-11-21 16:22] VITALS: BP 128/61; PULSE 94; RESP 17; O2SAT 98
[2016-11-21 16:25] VITALS: PULSE 93
--- NOTE | 2016-11-21 17:54 | NUR ---
Admit The pt was admitted to the unit at 1630. The pt arrived via gurney A&O x3 with vitals WNL. Report received from the ED RN and care transferred.
[2016-11-21] MEDS ORDERED: TOLTERODINE TARTRATE 4 MG PO SCH (18:25)
[2016-11-21] MEDS: 0.9% Sodium Chloride 1,000 ML IV SCH ×2 (18:38→23:25)
[2016-11-21] MEDS ORDERED: Polyethylene Glycol (PEG) 17 Gm Powder PO PRN (18:40)
--- NOTE | 2016-11-21 19:00 | PCM.HPMED ---
Subjective Date of Service Nov 21, 2016 Primary Provider: Admitting Physician: Jonatan Finn DO Primary Care Physician: Kareem Márquez MD Attending Physician: Jonatan Finn DO Admit Status: From the Emergency Department Chief Complaint: Shoulder pain and nausea vomiting History of Present Illness: This is a 61-year-old male with past medical history including type I diabetes, ulcerative colitis with recurrent C. difficile and GI bleeding, DVT history with IVC filter, cardiomyopathy, history of CVA, PVD and CAD. He presented to the emergency room with a chief complaint of right upper extremity pain and also mentions nausea vomiting that started this morning. Has been seen several times for shoulder pain and was diagnosed with muscle strain and neuropathic pain. Patient vomited 3 times today, he has had decreased urination. His blood sugars have been elevated which she attributes to drinking some sweetened drink earlier today. He does have an insulin pump. He states his shoulder pain is also starting to affect his left shoulder as well as his right. He has no other pain issues, no headaches dizziness cough congestion sore throat or any nose he denies abdominal pain he does have intermittent constipation and diarrhea no rashes or lesions. Review of Systems: As in history of present illness, otherwise 12 point review systems negative Allergies Coded Allergies: Macrolide Antibiotics (Verified Allergy, Severe, 11/03/16) azithromycin (Verified Allergy, Severe, 11/03/16) hydromorphone HCl (Verified Allergy, Severe, 11/03/16) lisinopril (Verified Allergy, Unknown, 11/03/16) methocarbamol (Verified Allergy, Unknown, 11/03/16) paroxetine (Verified Allergy, Unknown, 11/03/16) niacin (Verified Adverse Reaction, Mild, hot and itch, 11/03/16) Home Medications Aspirin (Aspirin) 81 Mg Tablet 81 MG PO DAILY Atorvastatin (Lipitor) 80 Mg Tablet 80 MG PO HS Clopidogrel (Clopidogrel) 75 Mg Tablet 75 MG PO QAM Doxazosin Mesylate (Doxazosin Mesylate) 2 Mg Tablet 1 MG PO HS Finasteride (Finasteride) 5 Mg Tablet 5 MG PO QAM Furosemide (Furosemide) 20 Mg Tab 20 MG PO QAM Gabapentin (Gabapentin) 600 Mg Tablet 600 MG PO TID 0900, 1500, 2100 Insulin Human Lispro (HumaLOG U100 Insulin Vial) 100 Unit/Ml Unit Unknown Dose SQ ACHS insulin dosing based on blood sugar, given via insulin pump Iron Polysaccharides Complex (Poly-Iron) 150 Mg Capsule 150 MG PO QAM Losartan Potassium (Losartan Potassium) 25 Mg Tablet 25 MG PO QAM Mesalamine (Lialda) 1.2 Gm Tablet.dr 2.4 GM PO BIDWM Metoprolol Succinate ER (Metoprolol Succinate ER) 25 Mg Tab.er.24h 25 MG PO BID Oxybutynin Chloride ER (Oxybutynin Chloride ER) 15 Mg Tab.er.24 15 MG PO QAM Pantoprazole DR (Pantoprazole DR) 40 Mg Tablet.dr 40 MG PO BIDAC Potassium Chloride (Potassium Chloride) 20 Meq Tab.er.prt 20 MEQ PO QAM Tamsulosin (Flomax) 0.4 Mg Capsule 0.4 MG PO HS Tolterodine Tartrate ER (Detrol LA) 4 Mg Capsule 4 MG PO QAM Trazodone (Trazodone) 50 Mg Tablet 25-50 MG PO HS Scheduled PRN Benzonatate (Benzonatate) 200 Mg Capsule 200 MG PO TID PRN PRN For Cough Hydrocodone-Acetaminophen 5-325 mg (Hydrocodone-Acetaminophen 5-325 mg) 1 Each Tablet 1 TABLET PO Q8H PRN PRN For Pain Meclizine (Bonine) 25 Mg Tab.chew 25 MG PO BID PRN PRN VERTIGO/NAUSEA PMH C. diff colitis Ulcerative colitis. History of acute hypoxic, hypercapnic respiratory failure requiring intubation and mechanical ventilation for eight days from September 23 Obesity hypoventilation syndrome. History of pulmonary edema. History of GI bleeding associated with ulcerative colitis, gastritis, and esophagitis Prior history of liver failure secondary to pravastatin, now resolved. Type 1 diabetes mellitus History of DVT status post inferior vena cava filter by Dr. Edward on September 28, 2013 (patient no longer on Coumadin). Diastolic heart failure with last echocardiogram from September 2013 showing EF of 45%-55%. Status post pacemaker in 1994 for 3rd degree AV block. Insomnia. Depression. Hypertension. Hyperlipidemia. 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 Peripheral vascular disease. Obesity. H/o Pneumonia Reports: Coronary artery disease, GERD Surgical History Right carotid stent Right lower extremity stent Inferior vena cava filter ICD in place Reports: Carotid endarterectomy Reports: Pacemaker insertion Family History Patient states that his mother at age 74 of a pulmonary emboli. He has no information about his father. No other significant family medical history Social History Hx Alcohol Use: No Hx Substance Use: No Hx Tobacco Use: No Smoking Status: Former Smoker Living Arrangement: Alone Additional Information He does receive some help from his ex-girlfriend Exam Vital Signs Vital Sign - Last Date Time Temp Pulse Resp B/P Pulse Ox O2 Delivery O2 Flow Rate FiO2 11/21/16 16:25 93 11/21/16 16:22 36.7 17 128/61 98 Room Air Exam General: Alert, Oriented X3 NAD. Chronically ill-appearing Head: Normocephalic, atraumatic Eyes: MACI, EOMI, no scleral Icterus Oropharynx: pink moist oral mucosa. Poor dentition Neck: supple, trachea midline, no adenopathy Chest: clear to auscultation B/L, no wheezing rales or rhonchi Heart: Regular rate and rhythm. Normal S1, S2, no murmurs noted Abdomen: soft, mild generalized tenderness to palpation. Bowel sounds are normoactive. No guarding or rebound. Extremities: no cyanosis, clubbing or edema. No acute joint inflammation. Skin: no acute rashes or lesions noted Neuro: Cranial nerves II-XII intact, no focal findings. Psych: normal judgement and insight. Lab and Diagnostics Result Diagram: 11/21/16 1320 Assessment & Plan This is a 61-year-old male with a complex medical history who presented for medical treatment of shoulder pain and was actually diagnosed with diabetic ketoacidosis in the emergency room. He was noted having Acidosis and decreased bicarbonate. Ketones noted in his urine. DKA: -He has been started on an insulin drip, he does have an insulin pump and will need today evaluated by diabetic education. -CONTINUE copious amounts of IV fluids for the time being -Check hemoglobin A1c -Follow electrolytes closely until resolution of hyperglycemia Hyperlipidemia -Continue statin, Zetia Shoulder pain: -Oral pain medications only, check CK. Rule out rhabdomyolysis -X-rays negative Hypertension: -Continue losartan, metoprolol Coronary artery disease: -Currently stable continue aspirin, Plavix, Lipitor, metoprolol BPH: -Continue tamsulosin and doxazosin Gastroesophageal reflux disease: -Continue Protonix and ranitidine CODE STATUS: Full code DVT prophylaxis: Lovenox, does have history of GI bleed. Disposition: Patient lives home alone, independent with his ADLs. Likely home, pending hospital course. Time spent 65 minutes copies to: Kareem Márquez MD, Brian F DO Nov 21, 2016 19:00
[2016-11-21 19:20] LABS: BASOPHILS % (AUTO) 0.5 % (0-3); EOSINOPHILS % (AUTO) 0.5 % (0-5); MONOCYTES % (AUTO) 12.1 % (4-12); Mean Corpuscular Hemoglobin 27.8 pg (27.0-35.0); Mean Corpuscular Volume 85.2 fL (81-100); NEUTROPHILS % (AUTO) 72.1 % (40-74); Platelet Count 325 bil/L (150-400)
[2016-11-21] MEDS: HYDROcodone-APAP 5-325 mg Tablet PO PRN (19:30)
[2016-11-21 19:34] VITALS: BP 122/59; PULSE 85; RESP 16; O2SAT 98
[2016-11-21 19:39] LABS: ERYTHROCYTE SEDIMENTATION RATE 11 mm/hr (0-30)
[2016-11-21] MEDS: MeTOProlol XL 25 mg ER24 Tablet PO SCH (19:46)
[2016-11-22] VITALS (9 sets, daily range): BP systolic 97–116; BP diastolic 44–51; PULSE 71–83; RESP 14–20; O2SAT 93–98
[2016-11-22] MEDS: HYDROcodone-APAP 5-325 mg Tablet PO PRN ×2 (00:26→09:35)
[2016-11-22 05:55] LABS: BASOPHILS % (AUTO) 0.5 % (0-3); EOSINOPHILS % (AUTO) 4.1 % (0-5); MONOCYTES % (AUTO) 8.7 % (4-12); Mean Corpuscular Hemoglobin 27.8 pg (27.0-35.0); Mean Corpuscular Volume 85.6 fL (81-100); NEUTROPHILS % (AUTO) 71.9 % (40-74); Platelet Count 293 bil/L (150-400)
[2016-11-22] MEDS: 0.9% Sodium Chloride 1,000 ML IV SCH ×2 (06:12→13:36)
--- NOTE | 2016-11-22 06:19 | NUR ---
BGs/Respiratory/BP/Pain Pt was started on a non-DKA insulin drip protocol at [facility] after the pt suspended the pt's own insulin pump. Pt's insulin pump and a refill vial of insulin are in the pt's medication drawer and need to be transferred down to pharmacy. Pt's BGs have remained in the 200s throughout the shift. Pt is currently on 2units/hr of insulin. Pt's SpO2 goes down into the low 90s when asleep but pt does not want supplemental O2 at this time. Pt's SpO2 is in the upper 90s when awake and fully alert when on RA. Pt has become hypotensive throughout the night but SBP is still >90 and MAP >60. Pt has c/o pain 7/10 in shoulders when pt is awake. Pt's pain seems to respond to one [place] with a 2-3/10 on the pain scale when pain is reassessed.
[2016-11-22] MEDS: Pantoprazole 40 mg ER24 Tablet PO SCH ×2 (07:51→15:43)
[2016-11-22] MEDS: MeTOProlol XL 25 mg ER24 Tablet PO SCH ×2 (07:51→20:16)
[2016-11-22] MEDS: Tolterodine ER 4 mg ER24 Capsule PO SCH (07:53)
[2016-11-22] MEDS: Potassium Chloride 20 mEq SR Tablet PO SCH (07:54)
[2016-11-22] MEDS: MESALAMINE 2.4 GM PO SCH ×2 (08:30→17:30)
--- NOTE | 2016-11-22 10:44 | NUR ---
INSULIN PUMP EVALUATION. 61 YO patient with type 1 diabetes is admitted with DKA. Providers are concerned that his pump may be malfunctioning. The patient has been working with Jorge Cleveland RPh, our outpatient program staff development educator / certified pump customer trainer. The patient may discharge today or tomorrow. I requested that Jorge coordinate an appointment with him at his earliest convenience.
--- NOTE | 2016-11-22 15:12 | PCM.PNMED ---
Subjective Date of Service Nov 22, 2016 Subjective Condyloma better today, his blood sugars are better controlled, now off of insulin drip. Still complaining of shoulder pain but he states this is improved as well. No chest pain, nausea vomiting, diarrhea or constipation. Exam Vital Signs Vital Sign - Last Date Time Temp Pulse Resp B/P Pulse Ox O2 Delivery O2 Flow Rate FiO2 11/22/16 12:29 36.8 71 16 97/48 98 Room Air Intake and Output 11/21/16 11/21/16 11/22/16 Cumulative From/Thru 15:00 23:00 07:00 11/21/16 12:06 - 11/22/16 06:34 Intake Total 1000 ml 1000 ml 1903 ml 3903 ml Output Total 350 ml 350 ml Balance 1000 ml 1000 ml 1553 ml 3553 ml Intake Oral 150 ml 150 ml IV Total 1000 ml 1000 ml 1753 ml 3753 ml Output Urine Total 350 ml 350 ml Exam General: Alert, Oriented X3, NAD Head: Normocephalic, atraumatic Eyes: MACI, EOMI, no scleral Icterus Chest: clear to auscultation B/L, no wheezing rales or rhonchi Heart: Regular rate and rhythm. Normal S1, S2, no murmurs noted Abdomen: soft, non-tender. Bowel sounds are normoactive. No guarding or rebound. Extremities: no cyanosis, clubbing or edema. Chronic venous stasis changes IVs and Medications Medications Reviewed: Medications were reviewed in detail Lab and Diagnostics Result Diagram: 11/22/16 0536 11/22/16 0536 Assessment & Plan This is a 61-year-old male with a complex medical history who presented for medical treatment of shoulder pain and was actually diagnosed with diabetic ketoacidosis in the emergency room. He was noted having Acidosis and decreased bicarbonate. Ketones noted in his urine. DKA: -Improved, switch to the patient's insulin pump. Patient just switched injector and cartridge -Follow electrolytes closely until resolution of hyperglycemia Hyperlipidemia -Continue statin, Zetia Shoulder pain: -Oral pain medications only, CK is not elevated no indication for rhabdomyolysis. -X-rays negative Hypertension: -Continue losartan, metoprolol Coronary artery disease: -Currently stable continue aspirin, Plavix, Lipitor, metoprolol BPH: -Continue tamsulosin and doxazosin Gastroesophageal reflux disease: -Continue Protonix and ranitidine CODE STATUS: Full code DVT prophylaxis: Lovenox, does have history of GI bleed. Disposition: Patient lives home alone, independent with his ADLs. Likely home, pending hospital course. Jonatan Finn DO Nov 22, 2016 15:12
--- NOTE | 2016-11-22 15:52 | NUR ---
Social Work Note: Initial Assessment Data& Assessment: EMR reviewed. SW met with pt at bedside to discuss discharge planning and assess for any unmet needs. Shaw Delgado is a 61 year old male admitted on 11/21/2016 for HHS and DKA. Pt has Medicare and DSHS Supplement. Pt sees Kareem Márquez MD for primary care. Pt lives in [place] alone in a ADL adapted home. Pt has WOO caregiving twice a week through [employer] that help with chores around the house and bathing. Pt uses an electric wheelchair for ambulation at baseline and the bus system for transportation. Pt has had multiple hospital visits in the past 6 months and struggles with diabetes management. Nutrition is arranging appointment with outpt provider for evaluation of his insulin pump.Pt does not have HH hx but has been to both [facility] and [facility]. Pt states that if he requires SNF, [facility] would be his preferences, he does not want to go back to [facility] again. PT is recommending SNF at this time, but pt explained that he feels like he is pretty close to his baseline. Pt struggles with sitting up and transferring at this time, "i can do it, I just struggle with it." Pt could at least benefit from HH PT and RN for strengthening and medication management and blood sugar checks. Pt explained he is agreeable to home health and if he feels like his mobility is worse tomorrow he will let SW know. SNF/HH LIST PROVIDED FOR PREFERENCES. Pt does not have HH preference and agreed to refer to the rotating calender. Referral made to [facility], access provided. Pt does not have LTC insurance or VA benefits. Pt provided with DPOA/Advance Directive paperwork to review and complete when possible. Pt explained all of his family is in [place] but he will think of someone that would be contacted in an emergency as he does not have NOK listed at this time. Pt denied any other needs at this time. SW to continue to follow if any needs arise. Plan: Anticipated discharge home via bus vs. medicaid transport when medically ready with [facility] PT and RN to follow. Pt denied any other needs at this time. SW to continue to follow if any needs arise. NAFISA Hui
--- NOTE | 2016-11-22 17:34 | NUR ---
ANA LAURA explained and signed. Copy of Ana Laura and Medicare self administered medication information given to pt.
--- NOTE | 2016-11-22 17:51 | NUR ---
Blood Sugar Pt. taken off insulin drip this morning and put back on his personal pump of insulin for type 1 DM. Pts. blood sugar has been increasing throughout the day and reaching as high as 287 at ~1340. At ~ 1640 blood sugar decreased to 161, made aware and switched his NPO status to diabetic constant carb.
[2016-11-23 02:31] VITALS: BP 119/65; PULSE 70; RESP 16; O2SAT 96
[2016-11-23 03:11] LABS: Mean Corpuscular Hemoglobin 27.6 pg (27.0-35.0)
[2016-11-23 05:58] VITALS: PULSE 77
--- NOTE | 2016-11-23 06:02 | NUR ---
BG's/Activity Pt's BG was checked at approximately 0430 after reviewing pt's AM labs that show pt's BG at 84. Pt's BG was 73 and pt was given some juice and crackers with peanut butter. Pt's BG was rechecked approximately 15 minutes later and the pt's BG was still 73. Pt was given another juice and more crackers with peanut butter. When pt's BG was rechecked this time the pt's BG was 102. Pt reported that he felt better once his BG was at 102. Pt continues to increase mobility by using a FWW while in the room. Pt was more frequently OOB and walking using the FWW.
[2016-11-23 07:35] VITALS: BP 121/66; PULSE 70; RESP 18; O2SAT 97
[2016-11-23] MEDS: Tolterodine ER 4 mg ER24 Capsule PO SCH (07:45)
[2016-11-23] MEDS: Potassium Chloride 20 mEq SR Tablet PO SCH (07:45)
[2016-11-23] MEDS: MeTOProlol XL 25 mg ER24 Tablet PO SCH (07:45)
[2016-11-23] MEDS: Pantoprazole 40 mg ER24 Tablet PO SCH (07:46)
[2016-11-23] MEDS: MESALAMINE 2.4 GM PO SCH (07:53)
[2016-11-23 09:01] VITALS: PULSE 87
[2016-11-23] MEDS ORDERED: ATOR80TA PO (11:07)
--- NOTE | 2016-11-23 11:09 | PCM.DIMED ---
Discharge Instructions Date of Service Nov 23, 2016 Dates of Hospitalization Nov 21, 2016 at 16:04 Discharge Diagnosis Discharge Diagnosis Diabetic ketoacidosis Bilateral shoulder pain-possibly statin related Diet Diabetic Activity No restrictions Call your provider Fever or Chills, Shortness of breath, Excessive diarrhea, Weakness (unilateral) Patient Instructions Follow-up plan Discharge home with home health for blood sugar checks with home health RN Outpatient diabetic education for insulin pump Follow-up with PCP within one week, sooner if condition worsens in anyway. Follow-up with PCP in: 1 week Jonatan Finn DO Nov 23, 2016 11:09
--- NOTE | 2016-11-23 11:51 | NUR ---
Social Work Note: Discharge Data& Assessment: Per pt is medically ready to discharge home via Medicaid transport wheelchair van. Shaw Delgado is a 61 year old male admitted on 11/21/2016 for HHS and DKA. Per pt is medically improved and ready for discharge. PT had previously been recommending SNF, however pt felt like he was ambulating close to his baseline. Pt is ambulating with RN in his room with a FWW. Pt uses a [employer] electric scooter for ambulation at baseline. Pt does feel he could use some strengthening and improve his transfer ability. Pt agreeable to Home Health services for PT and RN for blood sugar checks. Pt provided with list for preferences, pt did not have a preference and agreed to refer to the rotating [facility]. SW spoke with Ulices from [facility] for referral and to notify him of pt discharge home today. [employer] faxed. Pt is interested in having a walker at home, wrote prescripotion in agreement that pt would benefit from walker. DME companies are not open today (Thursday), DME list provided to pt. SW offered to fax the FWW prescription to preferred DME company. Pt explained he prefers to obtain the walker on his own at a local drug store or [facility]. Pt is excited to discharge home today and get back to his cat and girlfriend. DC paperwork faxed to pt [employer] Pr[employer]. Pt requires Medicaid transport home via wheelchair van, JAYLIN arranged tack picker at 1:00p.m. Pt and RN notified. Pt denies any other needs. No other discharge needs identified. All updated and agreeable to plan. Plan: Per pt is medically improved and ready to discharge home via wheelchair van Medicaid transport with [facility] PT and RN to follow for strengthening and blood sugar checks. Pt provided with FWW prescription, pt declined SW help with faxing prescription and prefers to obtain the walker on his own. Pt denies any other needs. No other discharge needs identified. All updated and agreeable to plan. NAFISA Hui
--- NOTE | 2016-11-23 15:22 | NUR ---
Discharge Pt. discharged to home at ~ 1330 and took all his belongings with him from room [address] [place] [address]. Pt. was instructed to follow up with his PCP in 1 week and phone number provided on discharge paper. Pt. stated he understood and would be calling to make that appointment. Pt. was given educational material on Atorvastatin and Diabetes Mellitus Type 1 in Adults.
--- NOTE | 2016-11-23 20:05 | PCM.DC.MED ---
Discharge Summary Date of Service Nov 23, 2016 Dates of Hospitalization Date of Hospital Admission Nov 21, 2016 at 16:04 Date of Discharge: Nov 23, 2016 Providers: Admitting Physician: Chelsie Finn DO Primary Care Physician: Kareem Márquez MD Attending Physician: Chelsie Finn DO Diagnosis at Time of Discharge Diagnosis at Time of Discharge Diabetic ketoacidosis Bilateral shoulder pain-possibly statin related Brief History This is a 61-year-old male with past medical history including type I diabetes, ulcerative colitis with recurrent C. difficile and GI bleeding, DVT history with IVC filter, cardiomyopathy, history of CVA, PVD and CAD. He presented to the emergency room with a chief complaint of right upper extremity pain and also mentions nausea vomiting that started this morning. Has been seen several times for shoulder pain and was diagnosed with muscle strain and neuropathic pain. Patient vomited 3 times today, he has had decreased urination. His blood sugars have been elevated which she attributes to drinking some sweetened drink earlier today. He does have an insulin pump. He states his shoulder pain is also starting to affect his left shoulder as well as his right. He has no other pain issues, no headaches dizziness cough congestion sore throat or any nose he denies abdominal pain he does have intermittent constipation and diarrhea no rashes or lesions. Hospital Course This is a 61-year-old male with a complex medical history who presented for medical treatment of shoulder pain and was actually diagnosed with diabetic ketoacidosis in the emergency room. He was noted having Acidosis and decreased bicarbonate. Ketones noted in his urine. The patient was started on a insulin drip and his sugars rapidly returned to normal levels. He was placed back on his normal insulin pump and his blood sugars immediately began to rise again. He switch his injector and insulin cartridge and the pump started working again. Evidently his pump site was not working causing his DKA. Diabetic education was ordered, he will need follow-up as an outpatient. Information given. His shoulder pain continued through his hospital stay so he was checked for rhabdomyolysis and his CK was noted to be within normal limits. His muscle pains may be secondary to statin, his statin was cut in half at the time of discharge. He was discharged home in stable condition and will need follow-up with his primary care physician within one week, sooner if his condition worsens in anyway. Delineated problem list as below. DKA: -Improved, switch to the patient's insulin pump. Patient just switched injector and cartridge -Follow electrolytes closely until resolution of hyperglycemia Hyperlipidemia -Continue statin, Zetia Shoulder pain: -Oral pain medications only, CK is not elevated no indication for rhabdomyolysis. -X-rays negative Hypertension: -Continue losartan, metoprolol Coronary artery disease: -Currently stable continue aspirin, Plavix, Lipitor, metoprolol BPH: -Continue tamsulosin and doxazosin Gastroesophageal reflux disease: -Continue Protonix and ranitidine Exam Vital Signs (Last) Date Time Temp Pulse Resp B/P Pulse Ox O2 Delivery O2 Flow Rate FiO2 11/23/16 09:01 87 11/23/16 07:35 36.6 18 121/66 97 Room Air Test 11/21/16 04:07 11/21/16 13:20 11/21/16 14:32 11/21/16 19:01 Hemoglobin A1c 12.7% (4.8-5.6) Hold Purple Top Tube Received (Received) Hold Blue Top Tube Received (Received) Osmolality 325 (275-300) Total Bilirubin 1.2mg/dL (0.0-1.2) Aspartate Amino Transf (AST/SGOT) 13U/L (0-50) Alanine Aminotransferase (ALT/SGPT) 23U/L (0-44) Alkaline Phosphatase 114U/L (25-160) Total Creatine Kinase 53U/L (21-232) C-Reactive Protein 1.6mg/dL (0.0-0.5) Total Protein 8.3g/dL (6.4-8.4) Albumin 4.6g/dL (3.4-5.0) Hold Red Top Tube Received (Received) Hold [place] Top Tube Received (Received) Hold Lem[place] Top Tube Received (Received) Ketones Small (Negative) Urine Color Yellow (YELLOW) Urine Appearance Clear (CLEAR,HAZY) Urine pH 5.5 (5.0-8.0) Urine Specific [place] 1.025 (1.003-1.035) Urine Protein Negativemg/dL (NEG,TRACE) Urine Glucose (UA) >1000mg/dL (NEGATIVE) Urine Ketones >80mg/dL (NEGATIVE) Urine Occult Blood Negative (NEGATIVE) Urine Nitrite Negative (NEGATIVE) Urine Bilirubin Negative (NEGATIVE) Urine Urobilinogen Normalmg/dL (NORMAL) Urine Leukocyte Esterase Negative (NEGATIVE) Urine RBC 0-2/hpf (0-2) Urine WBC 0-5/hpf (0-5) Urine Epithelial Cells Occasional/hpf (NONE-MOD) Urine Crystals None seen (NONE SEEN) Urine Bacteria None/hpf (NONE-FEW) Urine Hyaline Casts None/lpf (NONE) Urine Granular Casts None seen (NONE SEEN) Urine Waxy Casts None seen (NONE SEEN) Urine Red Blood Cell Casts None seen (NONE SEEN) Urine White Blood Cell Casts None seen (NONE SEEN) Urine Mucus None seen (None Seen) Urine Trichomonas None seen (NONE SEEN) Urine Yeast None (NONE SEEN) Urine Culture Reflexed Not indicated Erythrocyte Sedimentation Rate 11mm/hr (0-30) Test 11/22/16 05:36 11/23/16 02:35 Neutrophils (%) (Auto) 71.9% (40-74) Lymphocytes (%) (Auto) 14.6% (14-46) Monocytes (%) (Auto) 8.7% (4-12) Eosinophils (%) (Auto) 4.1% (0-5) Basophils (%) (Auto) 0.5% (0-3) White Blood Count 7.3th/mm3 (3.8-10.1) Red Blood Count 3.99mil/mm3 (4.40-5.80) Hemoglobin 11.0g/dL (13.8-17.2) Hematocrit 34.3% (41.0-50.0) Mean Corpuscular Volume 86.0fL (81-100) Mean Corpuscular Hemoglobin 27.6pg (27.0-35.0) Mean Corpuscular Hemoglobin Concent 32.1% (32.0-37.0) Red Cell Distribution Width 13.0% (12.3-15.4) Platelet Count 250bil/L (150-400) Sodium Level 139mEq/L (134-144) Potassium Level 4.0mEq/L (3.5-5.2) Chloride Level 106mEq/L (97-108) Carbon Dioxide Level 19mmol/L (18-29) Blood Urea Nitrogen 15mg/dL (6-24) Creatinine 0.91mg/dL (0.76-1.27) Estimat Glomerular Filtration Rate 91mL/min (>59) Glucose Level 84mg/dL (60-99) Calcium Level 9.1mg/dL (8.5-10.1) Discharge Medications Discharge Medications Aspirin (Aspirin) 81 Mg Tablet 81 MG PO DAILY Prescribed by: KALLI SCHUSTER MD Atorvastatin (Lipitor) 80 Mg Tablet 40 MG PO HS Prescribed by: CHELSIE FINN DO Clopidogrel (Clopidogrel) 75 Mg Tablet 75 MG PO QAM (Reported) Doxazosin Mesylate (Doxazosin Mesylate) 2 Mg Tablet 1 MG PO HS (Reported) Finasteride (Finasteride) 5 Mg Tablet 5 MG PO QAM (Reported) Furosemide (Furosemide) 20 Mg Tab 20 MG PO QAM (Reported) Gabapentin (Gabapentin) 600 Mg Tablet 600 MG PO TID (Reported) 0900, 1500, 2100 Insulin Human Lispro (HumaLOG U100 Insulin Vial) 100 Unit/Ml Unit Unknown Dose SQ ACHS (Reported) insulin dosing based on blood sugar, given via insulin pump Iron Polysaccharides Complex (Poly-Iron) 150 Mg Capsule 150 MG PO QAM (Reported ) Losartan Potassium (Losartan Potassium) 25 Mg Tablet 25 MG PO QAM (Reported) Mesalamine (Lialda) 1.2 Gm Tablet.dr 2.4 GM PO BIDWM (Reported) Metoprolol Succinate ER (Metoprolol Succinate ER) 25 Mg Tab.er.24h 25 MG PO BID (Reported) Oxybutynin Chloride ER (Oxybutynin Chloride ER) 15 Mg Tab.er.24 15 MG PO QAM ( Reported) Pantoprazole DR (Pantoprazole DR) 40 Mg Tablet.dr 40 MG PO BIDAC (Reported) Potassium Chloride (Potassium Chloride) 20 Meq Tab.er.prt 20 MEQ PO QAM ( Reported) Tamsulosin (Flomax) 0.4 Mg Capsule 0.4 MG PO HS (Reported) Tolterodine Tartrate ER (Detrol LA) 4 Mg Capsule 4 MG PO QAM (Reported) Trazodone (Trazodone) 50 Mg Tablet 25-50 MG PO HS (Reported) As needed Benzonatate (Benzonatate) 200 Mg Capsule 200 MG PO TID PRN PRN For Cough ( Reported) Hydrocodone-Acetaminophen 5-325 mg (Hydrocodone-Acetaminophen 5-325 mg) 1 Each Tablet 1 TABLET PO Q8H PRN PRN For Pain (Reported) Meclizine (Bonine) 25 Mg Tab.chew 25 MG PO BID PRN PRN VERTIGO/NAUSEA (Reported ) Miscellaneous Medications Ranitidine (Ranitidine) 150 Mg Capsule 150 MG PO (Reported) Followup Plan Follow-up plan Discharge home with home health for blood sugar checks with home health RN Outpatient diabetic education for insulin pump Follow-up with PCP within one week, sooner if condition worsens in anyway. Discharge Diet: Diabetic Discharge Activity: No restrictions Follow-up with PCP in: 1 week Time spent 45 minutes Chelsie Finn DO Nov 23, 2016 11:10
== END 2016-11-23 13:30 | disposition home or self-care (01) ==
LOC: SED 12:06 → PCC 16:04 → INTOOBSV 16:04 → PCC 16:10
PROVIDERS: ADMIT Family Medicine; ATTEND Family Medicine
DX: E10.10 Type 1 diabetes mellitus with ketoacidosis without coma (principal); Z96.41 Presence of insulin pump (external) (internal); M25.512 Pain in left shoulder; M25.511 Pain in right shoulder; I10 Essential (primary) hypertension; I25.10 Atherosclerotic heart disease of native coronary artery without angina pectoris; E78.5 Hyperlipidemia, unspecified; K21.9 Gastro-esophageal reflux disease without esophagitis; I42.9 Cardiomyopathy, unspecified; I73.9 Peripheral vascular disease, unspecified; Z86.73 Personal history of transient ischemic attack (TIA), and cerebral infarction without residual deficits
CPT/HCPCS: 36415; 71010; 73030; 73060; 80048; 80053; 81000; 82009; 82550; 82948; 83036; 83930; 85025; 85027; 85651; 86140; 93005; 96361; 96372; 96374; 97161; 99291; G0378; J1650; J1815; J1885; J2405; J7030